=== PATIENT | male | born 1945 | race Caucasian/White ===

== ENCOUNTER 2018-10-26 23:38 | Inpatient (IN) | payer MEDICARE, OTHER ==
[2018-10-27 00:16] LABS: #Eosinphils 0.2 thou/uL (0.0-0.7); #Monocytes 0.6 thou/uL (0.11-0.59); #Neutrophils 6.3 thou/uL (1.40-6.50); %Basophils 0.2 % (0.0-1.0); %Eosinophils 2.1 % (0.0-10.0); %Lymphocytes 11.8 % (21.0-51.0); %Monocytes 7.2 % (0.0-10.0); %Neutrophils 78.7 % (42.0-75.0); Hemoglobin 11.3 g/dL (14.0-18.0); Mean Corpuscular HGB CONC 31.1 g/dL (32.0-36.0); Mean Corpuscular Hemoglobin 31.8 pg (27.0-31.0); Mean Platelet Volume 6.7 fL (7.4-10.4); Platelet Count 167 thou/uL (130-400); RBC Distribution Width 11.7 % (11.5-14.5); Red Blood Cell (RBC) Count 3.54 mill/uL (4.70-6.10)
[2018-10-27 00:24] LABS: INR-International Normal Ratio 1.2; Prothrombin Time 15.2 SEC (12.0-14.7)
[2018-10-27 00:39] LABS: Anion Gap 19 mmol/L (10-20); BUN (Urea Nitrogen) 62 mg/dL (8.4-25.7); Calc. Creatinine Clearance 0 mL/min (70-130); Calcium 8.3 mg/dL (7.8-10.44); Carbon Dioxide 27 mmol/L (23-31); Chloride 93 mmol/L (98-107); Estimated GFR-MDRD 8; Glucose 83 mg/dL (83-110); Potassium 5.3 mmol/L (3.5-5.1); Sodium 134 mmol/L (136-145)
[2018-10-27 00:40] LABS: ALT (SGPT) 8 U/L (8-55); AST (SGOT) 14 U/L (5-34); Alkaline Phosphatase 91 U/L (40-150); Bilirubin, Total 0.7 mg/dL (0.2-1.2); Globulin 3.1 g/dL (2.4-3.5); Protein, Total 7.1 g/dL (5.8-8.1)
[2018-10-27] MEDS ORDERED: Magnesium 2 GM/50 ML BAG (IN WATER) ONE (00:47)
[2018-10-27 01:04] LABS: Bilirubin Small (Negative); Blood, Urine Moderate (Negative); Clarity CLOUDY (Clear); Glucose, Urine (Dipstick) Negative (Negative); Leukocyte Small (Negative); Nitrite Negative (Negative); Protein, Urine (Dipstick) 30 mg/dL (Neg-Trace); Specific Gravity, Urine 1.021 (1.002-1.036); Urobilinogen 0.2 mg/dL (0.2-1.0)
[2018-10-27 01:05] LABS: Bacteria/HPF None Seen HPF (None Seen); Squamous Epithelial 0-3 HPF (0-3)
[2018-10-27 01:06] LABS: Pathc Cast-AUWi Flag 5.71 (0-2.49)
[2018-10-27 01:15] LABS: Other Casts/LPF 0-3 COARSE GRAN LPF (0-3 Hyaline); Renal Epithelial None Seen HPF (0-3); Transitional Epithelial NONE SEEN HPF (0-3)
[2018-10-27] MEDS ORDERED: methylPREDNISolone Sod Succ 40 MG VIAL ONE (01:19)
--- NOTE | 2018-10-27 02:00 | PDOC.FPRHP ---
- History of Present Illness Chief Complaint: AMS History of Present Illness: 73 yo M with PMH BPH, COPD presents as transfer from [place] for altered mental status. History obtained from . She reports 3 day history of increasing confusion, not feeling well, decreased urine output. Patient made no urine today. Had temperature max of 99 degrees 3 days ago. No increased cough, sputum production or difficulty breathing. He did not complain of any pain. says breathing is at baseline. Decreased PO intake x3 days, had to feed him as patient wouldn't raise arms to feed/drink himself. Last week patient could ambulate around the house, work on a car in the garage. Has HH and PT services through [facility]. November 2017 had event of acute renal failure 2/2 BPH that resolved with no residual renal damage per .Hospitalized at [facility]. Urologist: [facility]on [facility] at [facility] PCP: Malik ED Course: 2 g mag, duoneb, levaquin, 80 solumedrol, 1L NS - Allergies/Adverse Reactions Allergies Allergy/AdvReac Type Severity Reaction Status Date / Time No Known Drug Allergies Allergy Verified 10/27/18 06:45 - Home Medications Medication Instructions Recorded Confirmed Type ALPRAZolam 2 mg PO BID PRN 10/27/18 10/27/18 History Albuterol Sulfate [Ventolin Hfa] 2 puff PO Q4H 10/27/18 10/27/18 History Arformoterol [Brovana] 15 mcg NEB BID 10/27/18 10/27/18 History Aspirin [Ecotrin] 81 mg PO DAILY 10/27/18 10/27/18 History Azithromycin 250 mg PO 10/27/18 History Budesonide 0.5 mg NEB BID 10/27/18 10/27/18 History Fluticasone Propionate [Flonase 50 mcg NASAL DAILY 10/27/18 10/27/18 History Nasal [place]] Furosemide 40 mg PO DAILY 10/27/18 10/27/18 History HYDROcodone Bit/APAP 10/325 [[place] 1 tab PO Q6H PRN 10/27/18 10/27/18 History 10/325] Lisinopril 2.5 mg PO DAILY 10/27/18 10/27/18 History Morphine Sulfate [Morphine Sulfate 30 mg PO Q12H 10/27/18 10/27/18 History ER] Omeprazole 20 mg PO DAILY 10/27/18 10/27/18 History Sertraline HCl 50 mg PO DAILY 10/27/18 10/27/18 History Tamsulosin HCl [Flomax] 0.4 mg PO DAILY 10/27/18 10/27/18 History - History PMHx: HLD, HTN, COPD, BPH, hx of PE 2012 after knee surgery PSHx: R knee surgery, AAA repair FHx: CAD, COPD Social: Prior swetha. Current smoker, 1/2 PPD for >60 yrs. No alcohol or drug use. - Review of Systems ROS unobtainable: due to mental status Musculoskeletal: denies: pain - Vital signs BP: 129/69 HR: 79 RR: 16 Tmax: 97.7 Pox: 95% on 2L Wt: 109 kg - Physical Exam Constitutional: other (lethargic, follows commands, responds to some questions, garbled speech) HEENT: normocephalic and atraumatic, grossly normal hearing, other (mucus membranes dry) Neck: supple Heart: RRR, normal S1/S2 (auscultation limited by breath sounds), pulses present , no edema Lungs: other (significant diffuse wheezing, prolonged expiratory phase) Abdomen: bowel sounds present (tight abdomen, does not appear to be painful to palpation, hernia reducible) Musculoskeletal: normal structure, normal tone Neurological: no focal deficit Skin: other (cap refill >2 seconds) FMR H&P: Results - Labs Result Diagrams: 10/27/18 00:10 10/27/18 06:14 Lab results: WBC 8.0 thou/uL (4.8-10.8) 10/27/18 00:10 Hgb 11.3 g/dL (14.0-18.0) L 10/27/18 00:10 Hct 36.2 % (42.0-52.0) L 10/27/18 00:10 MCV 102.0 fL (78.0-98.0) H 10/27/18 00:10 Plt Count 167 thou/uL (130-400) 10/27/18 00:10 Neutrophils % 78.7 % (42.0-75.0) H 10/27/18 00:10 Sodium 134 mmol/L (136-145) L 10/27/18 00:09 Potassium 5.3 mmol/L (3.5-5.1) H 10/27/18 00:09 Chloride 93 mmol/L (98-107) L 10/27/18 00:09 Carbon Dioxide 27 mmol/L (23-31) 10/27/18 00:09 BUN 62 mg/dL (8.4-25.7) H 10/27/18 00:09 Creatinine 7.03 mg/dL (0.7-1.3) H 10/27/18 00:09 Glucose 83 mg/dL (83-110) 10/27/18 00:09 Lactic Acid 0.7 mmol/L (0.5-2.2) 10/27/18 00:23 Calcium 8.3 mg/dL (7.8-10.44) 10/27/18 00:09 Total Bilirubin 0.7 mg/dL (0.2-1.2) 10/27/18 00:09 AST 14 U/L (5-34) 10/27/18 00:09 ALT 8 U/L (8-55) 10/27/18 00:09 Alkaline Phosphatase 91 U/L (40-150) 10/27/18 00:09 Serum Total Protein 7.1 g/dL (5.8-8.1) 10/27/18 00:09 Albumin 4.0 g/dL (3.4-4.8) 04 00:09 Urine Ketones Trace mg/dL (Negative) H 10/27/18 00:38 Urine Blood Moderate (Negative) H 10/27/18 00:38 Urine Nitrite Negative (Negative) 10/27/18 00:38 Ur Leukocyte Esterase Small (Negative) H 10/27/18 00:38 Urine RBC 11-20 HPF (0-3) H 10/27/18 00:38 Urine WBC 11-20 HPF (0-3) H 10/27/18 00:38 Ur Squamous Epith Cells 0-3 HPF (0-3) 10/27/18 00:38 Urine Bacteria None Seen HPF (None Seen) 10/27/18 00:38 FMR H&P: A/P - Problem List (1) Acute metabolic encephalopathy Current Visit: Yes Status: Acute Code(s): G93.41 - METABOLIC ENCEPHALOPATHY (2) Acute renal failure Current Visit: Yes Status: Acute (3) Hypotension Current Visit: Yes Status: Acute (4) COPD (chronic obstructive pulmonary disease) Current Visit: Yes Status: Chronic (5) Macrocytic anemia Current Visit: Yes Status: Acute Code(s): D53.9 - NUTRITIONAL ANEMIA, UNSPECIFIED (6) Hyperkalemia Current Visit: Yes Status: Acute Code(s): E87.5 - HYPERKALEMIA (7) HTN (hypertension) Current Visit: Yes Status: Chronic Code(s): I10 - ESSENTIAL (PRIMARY) HYPERTENSION (8) BPH (benign prostatic hyperplasia) Current Visit: Yes Status: Acute Code(s): N40.0 - BENIGN PROSTATIC HYPERPLASIA WITHOUT LOWER URINRY TRACT SYMP (9) Chronic back pain Current Visit: Yes Status: Chronic Code(s): M54.9 - DORSALGIA, UNSPECIFIED; G89.29 - OTHER CHRONIC PAIN (10) GERD (gastroesophageal reflux disease) Current Visit: Yes Status: Chronic Code(s): K21.9 - GASTRO-ESOPHAGEAL REFLUX DISEASE WITHOUT ESOPHAGITIS (11) HLD (hyperlipidemia) Current Visit: Yes Status: Chronic Code(s): E78.5 - HYPERLIPIDEMIA, UNSPECIFIED (12) Mood disorder Current Visit: Yes Status: Chronic Code(s): F39 - UNSPECIFIED MOOD [ AFFECTIVE] DISORDER - Plan Metabolic encephalopathy 2/2 acute renal failure - VSS apart from hypotension. Normal WBC and lactic. Uremia likely contributing - considering h/o BPH could be post renal obstruction though would have expected more urine output with aguiar insertion. CT ab/pelvis ordered in ED pending. Will order urine studies though these will be after receiving 1.5 L IVF at outside ED. - pending Ucx, Bcx - UA with small leuk esterase, negative nitrite, hyaline casts - s/p 750 levaquin 4/25 in ED - trop neg x1, will not continue to trend - pending swallow evaluation Hypotension, improving - 90/40s in ED and was admitted to ICU with consideration of need for pressors/ central line. However BP now normalized with adequate fluid resuscitation - received 3.5L and now continue on LR @ 140 Acute renal failure - prior hx of this 1 year ago d/t BPH which completely resolved per - pending urine studies - K+ 5.3, Cr 7.03, repeat BMP this am - aguiar in place with 75mL output - strict I&Os, will continue to monitor - Nephrology consult placed by ED COPD - no increased O2 requirement, uses 2.5-3L @ home - s/p mag, solumedrol, levaquin, duoneb in ED - does not appear to be in exacerbation at this time, will continue home medications and continue to monitor respiratory status Macrocytic anemia - Hgb 11.3, ordered B12 and folate Hyperkalemia - 5.3, trend on repeat labs HTN - hold home meds for now considering hypotension BPH - continue home tamsulosin when not NPO Chronic back pain - on hydrocodone and morphine at home GERD - continue home PPI when not NPO HLD - home pravastatin, asa Mood disorder - takes quetiapine, sertraline, alprazolam at home Diet: NPO, pending swallow eval Ppx: heparin Code: DNR Dispo: admit to ICU, if BP stable and patient continues to improve today, could consider deescalating level of care PCP: Malik in [place] Case discussed with Dr. Sutton. FMR H&P: Upper Level - Pertinent history 73 yo M with PMHx HTN, BPH and COPD presents as EUGENIA from [place] for altered mental status, hypotension and anuria/acute renal failure. His reports that he has been feeling poorly over the last 3 days with decreased energy and urine output. However, prior to admission had not urinated at all that day. She also reports no BM in 4 days which is abnormal for him. He has not complained of any pain but did endorse urge to void but unable to. She urged him to go to ED when he was lethargic to point he wouldn't eat or drink at which point he agreed. - Pertinent findings VS reviewed, initially hypotensive which has resolved with fluids O2 94% on 2L which is baseline EKG and imaging reviewed Labs reviewed Gen: arouseable, intermittently responds to questions, oriented x3 HEENT: NCAT, dry MM, trachea midline, no JVD CV: RRR, difficult to auscultate over very coarse breath sounds RESP: coarse breath sounds with insp/exp wheezing BL ABD: firm, nontender, nondistended, reducible umbilcal hernia EXT: no edema, thickened toenails, pulses 1+ throughout SKIN: dry with multiple tattoos - Plan Date/Time: 10/27/18 0159 73 yo M with AMS likely 2/2 uremic encephalopathy 1. Metabolic encephalopathy - Resolving - Suspect 2/2 acute renal failure - Unknown baseline - Will continue fluid resuscitation and monitor strict I/Os - Repeat BMP in 6 hours 2. Hypotension - Responsive to fluids - Admitted to ICU for concern of need for pressors, will hold off at this time 3. Acute renal failure - DDX includes post-obstructive from BPH vs. intrinsic cause - Will order urine studies - Hx of acute renal failure 1 year ago, request records from [facility] - Likely renal consult in a.m. or sooner if concern for need for emergent dialysis arises 4. HTN - Stable, holding home meds with initial hypotensive presentation 5. COPD - At baseline 6. BPH - Continue flomax - Aguiar in place 7. Hyperkalemia - Trend, Kayelexlate if persistent or rising - No EKG changes 8. Acute cystitis - s/p Levaquin in ED - Renal dosing - if persistent next dose in [address] Graham's note for remainder of A/P I, Carola Manjarrez MD, PGY-3, have evaluated this patient and agree with findings/ plan as outlined by winter intern resident. Pertinent changes/additions are listed here. Addendum - Attending - Attending Attestation Date/Time: 10/27/18 2237 I personally evaluated the patient and discussed the management with Dr. Graham. I agree with the History, Examination, Assessment and Plan documented above with any addition or exceptions noted below- 73 yo M with PMH BPH, COPD, HTN presents as transfer from [place] for altered mental status and decreased urine output. History obtained from . She reports 3 day history of increasing confusion, not feeling well, decreased urine output. Has made no urine today. Had temperature max of 99 degrees 3 days ago. No increased cough, sputum production or difficulty breathing. He did not complain of any chills, N/ V. abdominal pain, dysuria. says breathing is at baseline. Decreased PO intake x3 days, had to feed him as patient wouldn't raise arms to feed/ drink himself. PMH/PSH/Meds/SH reviewed and agree with resident's documentation. Afebrile VSS Exam repeated by me and agree with resident's findings. Labs: WBC=8.0, H/H=11.3/36.2, Sxo=385, Rl=780, K=5.3, Cl=93 CO2=27, BUN/Cr=62/7.03, Gluc=83, PT/INR=15.2/1.2, U/A- tr ket, mod blood, sm LE, 11-20 RBC, 11-[address] abd- no evidence of kidney stones. No evidence of obstructive nephropathy or uropathy, moderate diverticulosis. A/P: 1) Acute on chronic renal failure - Admit to hospital. Continue IVF. Monitor I/Os. Aguiar placed. Plan to consult nephrology in AM. 2) Hypotension- resolved with fluid resuscitation. Continue to monitor. 3) COPD - continue home meds.
[2018-10-27] MEDS ORDERED: Senokot S 8.6-50 MG TAB PO PRN (02:25)
[2018-10-27] MEDS ORDERED: Lactated Ringer's 1,000 ML IV SCH (03:30)
[2018-10-27] MEDS ORDERED: PROVENTIL INHALER 6.7 G (200 INHALATIONS) INH SCH (06:15)
[2018-10-27 06:55] LABS: Anion Gap 19 mmol/L (10-20); BUN (Urea Nitrogen) 64 mg/dL (8.4-25.7); Calc. Creatinine Clearance 15 mL/min (70-130); Calcium 8.4 mg/dL (7.8-10.44); Carbon Dioxide 25 mmol/L (23-31); Chloride 96 mmol/L (98-107); Estimated GFR-MDRD 8; Glucose 98 mg/dL (83-110); Potassium 5.8 mmol/L (3.5-5.1); Sodium 134 mmol/L (136-145)
[2018-10-27 07:27] LABS: Folate (Folic Acid) 5.7 ng/mL (7.0-31.4)
[2018-10-27] MEDS: Aspirin 81 mg Enteric Coated Tablet PO SCH (07:46)
[2018-10-27] MEDS: Heparin 5,000 UNITS/ML VIAL SC SCH ×3 (07:46→20:32)
[2018-10-27] MEDS: Nicotine 14 MG PATCH TD SCH (07:46)
[2018-10-27] MEDS: Tamsulosin HCl 0.4 MG CAP PO SCH (07:48)
--- NOTE | 2018-10-27 07:53 | RAD ---
EXAM: CHEST ONE VIEW HISTORY: Shortness of breath COMPARISON: 10/05/2016 FINDINGS: Previously seen bibasilar linear and interstitial densities have improved when compared to prior stud y. Findings at the right lung base have resolved with only mild persistent linear densities left lung base which may be related to either residual infiltrate or atelectasis. Lungs are otherwise gera r. Cardiac silhouette and pulmonary vasculature are within normal limits. No other interval change. IMPRESSION: Resolution of interstitial densities left lung base with improvement in interstitial densities at the left lung base which may be related to either improvement in atelectasis or pneumonia. Minimal linear densities do persist at the left lung base probably attributable to atelectasis or residual in filtrate.
--- NOTE | 2018-10-27 07:58 | CT ---
FINAL REPORT CT ABDOMEN AND PELVIS NONCONTRAST: DATE: 10/27/2018. TIME: Performed on an emergency basis at 0155 hours. HISTORY: Acute onset renal failure. FINDINGS: Agree with the preliminary report by Dr. Pool from [facility]. No CT evidence of urinary t ract obstruction or calcification. Lack of contrast limits evaluation for other abnormalities. Gallbladder is distended with very small amount of hyperdense debris, possibly small gallstones. Diverticulosis without evidence of divertic ulitis. POS: CHRIS
[2018-10-27] MEDS ORDERED: Non-Formulary Item 1 EACH (Sertraline Hcl [Sertraline Hcl] 50 MG) PO SCH (09:00)
[2018-10-27] MEDS ORDERED: Non-Formulary Item 1 EACH (Omeprazole [Omeprazole] 20 MG) PO SCH (09:00)
[2018-10-27] MEDS ORDERED: Fluticasone Propionate Nasal Spray 16 gm Bottle NASAL SCH (09:00)
[2018-10-27 10:10] LABS: Actual Bicarbonate (HCO3a) 24.1 mEq/L (22-28); Base Excess (BEa) -3.1 mEq/L (-2.0 to +3.0); CO2 Tension 52.6 mmHg (35.0-45.0); Calcium, Ionized 1.06 mmol/L (1.12-1.30); Carboxyhemoglobin (COHb) 1.3 gm% (0.0-3.0); Hemoglobin (Hb) 11.4 g/dL (14.0-18.0); O2 Tension (PaO2) 70.7 mmHg (> 70.0); Potassium - ABG Lab 5.65 mmol/L (3.70-5.30); pH, Arterial 7.28 (7.35-7.45)
[2018-10-27] MEDS: Sodium Chloride 0.9% 1,000 ML IV SCH ×3 (10:10→23:18)
[2018-10-27 10:11] LABS: Puncture Site RRA
[2018-10-27] MEDS: Fluticasone Propionate Nasal Spray 16 gm Bottle NASAL SCH (11:29)
[2018-10-27] MEDS: methylPREDNISolone Sod Succ 40 MG VIAL IVP SCH ×3 (11:34→23:15)
[2018-10-27] MEDS ORDERED: methylPREDNISolone Sod Succ 40 MG VIAL IVP SCH (12:00)
--- NOTE | 2018-10-27 12:25 | CON ---
DATE OF CONSULTATION: REASON FOR CONSULTATION: Elevated creatinine and hyperkalemia. HISTORY OF PRESENT ILLNESS: This is a very pleasant 73-year-old gentleman with a history of acute kidney injury in the past and endovascular stent, presented to the hospital for decreasing urine output for the last three days and his brought him to the emergency room. The patient has had BPH and has had renal failure in the past. The patient denies any nausea, vomiting, or chest pain. PAST MEDICAL HISTORY: Hypertension, COPD, BPH, history of pulmonary embolism, history of right knee surgery, AAA repair. FAMILY HISTORY: Negative for ESRD. SOCIAL HISTORY: No alcohol or drug use. ALLERGIES: REVIEWED. REVIEW OF SYSTEMS: A 15-point review of system was performed negative except as noted above. GENERAL: HEAD: NECK: No swelling or lumps. NOSE: No epistaxis or discharge. EYES: No diplopia or pain. RESPIRATORY: CARDIOVASCULAR: GASTROINTESTINAL: /DIRECTOR EXTERNAL COMMUNICATIONS: MUSCULOSKELETAL: No joint pain. NEUROPSYCHIATRIC SYSTEMS: No suicidal ideation. No ideation. SKIN: Denies any rash or ulcer. CONSTITUTIONAL: No fever or chills. MEDICATIONS: Hospital medications list reviewed. Home medication list reviewed. PHYSICAL EXAMINATION: GENERAL: The patient is awake and alert. VITAL SIGN: Afebrile. Pulse 99, breathing 16, blood pressure 130/67. GENERAL APPEARANCE AND MENTAL STATUS: Fair. HEAD/NECK: Normocephalic. Atraumatic. EYES: EOMI. No deformity. EARS: Clear. No ulcers. NOSE: Intact. No lesions. MOUTH: Clear. No discharge. THROAT: Clear. No exudate. LUNGS: Clear. No crackles. CARDIAC: S1, S2. No rub. ABDOMEN: Benign. Bowel sounds positive. GENITALIA/RECTUM: Schultz absent. BACK/EXTREMITIES: Edema 0+. NEUROLOGICAL: Alert and motor intact. SKIN: LYMPHATICS: LABORATORY DATA: Labs show hemoglobin 11.3. Creatinine is 6.6, potassium 5.2. ASSESSMENT AND PLAN: 1. Acute kidney injury with chronic kidney disease, most likely multifactorial. There is no hydronephrosis likely because of ischemic nephropathy. There is no urgent indication for dialysis. Continue hydration. The patient is making urine. 2. Hyperkalemia. We will change the lactated Ringer's to normal saline and recheck potassium at 2:00 p.m. 3. Hypertension, stable. Medication based on GFR appropriate. No urgent indication for dialysis. Renal replacement therapy options were discussed with the patient and his spouse declined those. Job ID: [id number]
--- NOTE | 2018-10-27 13:28 | ULT ---
RENAL ULTRASOUND: COMPARISON: CT abdomen/pelvis 10/27/2018. HISTORY: Size and shape of the kidneys. TECHNIQUE: Multiplanar, randolph scale, and color Doppler images were obtained in a renal ultrasound. FINDINGS: The right kidney could not be visualized. There is limited visualization of the left kidney which me asures 10.8 cm in length. The Schultz catheter decompresses the urinary bladder. IMPRESSION: Extremely limited renal ultrasound secondary to bowel gas. POS: TPC
[2018-10-27 15:10] LABS: Anion Gap 21 mmol/L (10-20); BUN (Urea Nitrogen) 70 mg/dL (8.4-25.7); Calc. Creatinine Clearance 15 mL/min (70-130); Calcium 8.5 mg/dL (7.8-10.44); Carbon Dioxide 24 mmol/L (23-31); Chloride 96 mmol/L (98-107); Estimated GFR-MDRD 8; Glucose 164 mg/dL (83-110); Potassium 5.4 mmol/L (3.5-5.1); Sodium 136 mmol/L (136-145)
--- NOTE | 2018-10-27 17:37 | CON ---
DATE OF CONSULTATION: 10/27/2018 This is 75 minutes time, of that time, greater than 50% was spent with the patient and/or the patient's unit in the hospital. HISTORY OF PRESENT ILLNESS: The patient is a 73-year-old male, whose called 911 yesterday because he had not produced urine in 3 days. He has received most of his care at [facility] in the past. He is an active patient of Dr. Mcintosh, who is now a vigoureux printer at [facility]. The patient has a history of severe COPD and requires oxygen at home for treatment of chronic hypoxemic respiratory issues. He has had a history of postobstructive uropathy in the past. He has apparently had decreased oral intake over the last 3 days. He really cannot give me much in the way of history and seems somewhat altered. PAST MEDICAL HISTORY: 1. Very severe COPD. 2. Complex SUSAN, requiring auto SV in the past, but the patient is now noncompliant with that. 3. Anxiety. 4. Peripheral vascular disease. 5. Obstructive uropathy from prostate issues. PAST SURGICAL HISTORY: 1. Endovascular repair of AAA. 2. Right knee surgery x2. 3. Carpal tunnel release. SOCIAL HISTORY: Smokes about 8 cigarettes a day. Smoked more heavily in the past. Lives near [place]. Receives most of his medical care over in [place]. Does not consume alcohol. He is a retired dixon. FAMILY MEDICAL HISTORY: Remarkable for dementia, heart disease, and COPD. MEDICATIONS: Prior to admission: 1. Alprazolam 2 mg b.i.d. 2. Albuterol HFA metered-dose inhaler as needed. 3. Brovana twice daily. 4. Ecotrin 81 mg daily. 5. Budesonide nebulization solution 0.5 mg twice daily. 6. Azithromycin 250 mg a day. 7. Furosemide 40 mg daily. 8. Hydrocodone 10/325 one tab every 6 hours as needed. 9. Lisinopril 2.5 mg daily. 10. Morphine 30 mg every 12 hours extended release. 11. Omeprazole 20 mg daily. 12. Sertraline 50 mg daily. 13. Flomax 0.4 mg daily. REVIEW OF SYSTEMS: Not obtainable secondary to the patient's altered mental status. PHYSICAL EXAMINATION: VITAL SIGNS: Temperature 98.9, pulse 71, blood pressure 140/60, O2 saturation 92% on nasal cannula. The patient is 5 feet 11 inches, weighs 248 pounds. GENERAL: He appears in almost continuous respiratory discomfort. His exhalation time when he breaths is about 15 seconds per breath. HEENT: Pupils; right measures 5, left measures 3, both reactive. Sclerae anicteric. Oropharynx, enlarged tongue. Class 4 Mallampati airway. He has a white exudate on his tongue. NECK: No adenopathy, JVD, or bruits. LUNGS: Diffuse in expiratory wheezing with prolonged expiratory phase. CARDIAC: S1 and S2 regular without audible murmur. ABDOMEN: Obese, soft, nontender, and nondistended. EXTREMITIES: Brawny edema throughout. LABORATORY DATA: His labs show sodium 134, potassium 5.8, chloride 96, CO2 of 25, BUN of 64, creatinine 6.6, and glucose 98. INR is 1.2. Urinalysis showed 11 to 12 red blood cells, 11 to 12 white blood cells, moderate amount of blood, protein present, glucose present. White blood cell count 8.0, hematocrit 36.2, and platelet count 167. IMAGING STUDIES: Abdominal CT did not show evidence of bladder distention. Chest x-ray demonstrates elevated hemidiaphragms, prominent pulmonary arteries. No mass, effusion, or infiltrate otherwise. ASSESSMENT: 1. Acute renal failure, probably prerenal in nature. 2. Chronic obstructive pulmonary disease, likely with exacerbation. 3. Suspected hypercapnic and hypoxic acute on chronic respiratory failure. 4. Tobacco abuse. PLAN: 1. I think his main issue is probably COPD. I think he is having an exacerbation of symptoms and that has led to his decreased oral intake. 2. I would go ahead and place this patient on IV steroids and be more aggressive with his nebulization treatments. I will have an ABG checked. We can consider noninvasive ventilation if needed. 3. I agree with Schultz catheter fluid trial and Nephrology consultation will follow. Job ID: [id number]
[2018-10-27] MEDS: Budesonide 0.5 MG/2 ML NEB NEB SCH (18:11)
[2018-10-27] MEDS: Arformoterol 15 MCG/2 ML NEB NEB SCH (18:11)
[2018-10-27] MEDS ORDERED: ALPRAZolam 1 MG TAB PO SCH (22:15)
[2018-10-28 05:35] LABS: #Lymphocytes 0.3 thou/uL (1.20-3.40); #Monocytes 0.1 thou/uL (0.11-0.59); %Basophils 0.4 % (0.0-1.0); %Eosinophils 0.3 % (0.0-10.0); %Lymphocytes 4.8 % (21.0-51.0); %Monocytes 1.5 % (0.0-10.0); %Neutrophils 92.9 % (42.0-75.0); Hemoglobin 9.7 g/dL (14.0-18.0); Mean Corpuscular HGB CONC 32.4 g/dL (32.0-36.0); Mean Corpuscular Hemoglobin 32.4 pg (27.0-31.0); Mean Platelet Volume 7.4 fL (7.4-10.4); Platelet Count 187 thou/uL (130-400); RBC Distribution Width 11.9 % (11.5-14.5); Red Blood Cell (RBC) Count 2.98 mill/uL (4.70-6.10); White Blood Cell (WBC) Count 6.5 thou/uL (4.8-10.8)
[2018-10-28 06:00] LABS: ALT (SGPT) 10 U/L (8-55); AST (SGOT) 15 U/L (5-34); Albumin 3.6 g/dL (3.4-4.8); Alkaline Phosphatase 72 U/L (40-150); Anion Gap 17 mmol/L (10-20); BUN (Urea Nitrogen) 78 mg/dL (8.4-25.7); Bilirubin, Total 0.5 mg/dL (0.2-1.2); Calc. Creatinine Clearance 18 mL/min (70-130); Calcium 8.5 mg/dL (7.8-10.44); Carbon Dioxide 24 mmol/L (23-31); Chloride 100 mmol/L (98-107); Estimated GFR-MDRD 10; Globulin 2.8 g/dL (2.4-3.5); Glucose 132 mg/dL (83-110); Potassium 4.9 mmol/L (3.5-5.1); Protein, Total 6.4 g/dL (5.8-8.1); Sodium 136 mmol/L (136-145)
[2018-10-28] MEDS: methylPREDNISolone Sod Succ 40 MG VIAL IVP SCH ×4 (06:42→23:34)
[2018-10-28] MEDS: Bacteriostatic Water 30 ML VIAL FS PRN (06:42)
--- NOTE | 2018-10-28 07:22 | PDOC.FM ---
- Subjective Subjective: Patient seen at bedside this morning in no acute distress. He denies any complaints this morning. No acute events over night. - Objective MAR Reviewed: Yes Vital Signs & Weight: Vital Signs (12 hours) Temp Pulse Resp Pulse Ox 10/28/18 02:09 90 14 98 10/28/18 00:00 98.6 F 10/27/18 22:35 86 18 98 10/27/18 20:00 96 Weight Weight 112.7 kg Most Recent Monitor Data Heart Rate from ECG 93 NIBP 123/61 NIBP BP-Mean 75 Respiration from ECG 24 SpO2 97 I&O: 10/27/18 10/28/18 10/29/18 06:59 06:59 06:59 Intake Total 337 3756 Output Total 141 1715 Balance 196 1 Result Diagrams: 10/28/18 04:42 10/28/18 04:42 Phys Exam - Physical Examination Constitutional: NAD HEENT: moist MMs Neck: no JVD Wheezing and decreased air movement throughout. Tachycardic, no murmur noted. Muffled heart sounds Gastrointestinal: soft, non-tender, no distention Musculoskeletal: no edema, pulses present Neurological: non-focal, normal sensation, moves all 4 limbs Deviation from normal: A&O x1, patient appears confused when asked specific questions Skin: no rash Dx/Plan (1) Acute metabolic encephalopathy Code(s): G93.41 - METABOLIC ENCEPHALOPATHY Status: Acute (2) Acute renal failure Status: Acute (3) BPH (benign prostatic hyperplasia) Code(s): N40.0 - BENIGN PROSTATIC HYPERPLASIA WITHOUT LOWER URINRY TRACT SYMP Status: Chronic (4) Hyperkalemia Code(s): E87.5 - HYPERKALEMIA Status: Resolved (5) Hypotension Status: Resolved (6) Macrocytic anemia Code(s): D53.9 - NUTRITIONAL ANEMIA, UNSPECIFIED Status: Chronic (7) COPD (chronic obstructive pulmonary disease) Status: Chronic (8) Chronic back pain Code(s): M54.9 - DORSALGIA, UNSPECIFIED; G89.29 - OTHER CHRONIC PAIN Status: Chronic (9) GERD (gastroesophageal reflux disease) Code(s): K21.9 - GASTRO-ESOPHAGEAL REFLUX DISEASE WITHOUT ESOPHAGITIS Status: Chronic (10) HLD (hyperlipidemia) Code(s): E78.5 - HYPERLIPIDEMIA, UNSPECIFIED Status: Chronic (11) HTN (hypertension) Code(s): I10 - ESSENTIAL (PRIMARY) HYPERTENSION Status: Chronic - Plan Plan: 1. Metabolic encephalopathy - appears to be resolving, unclear baseline though he is much more aware today as compared to yesterday 2. Acute renal failure - improving renal function today, this was likely all pre renal related to poor po intake - continue IVF and monitoring urine output. 3. Hyperkalemia, resolved 4. Macrocytic anemia - Hb lower today, likely dilutional. Will need to replace folate in outpatient setting 5. COPD exacerbation - normal O2 sat, improved breath sounds though still poor air movement - continue duoneb and steroids 6. Hypotension, resolved 7. BPH - likely contributing to LENNOX - continue flomax - follow up with urology outpatient Dispo: patient is improving and stable, likely ready to move to medical floor today. Length of stay >48 hours. Addendum - Attending - Attending Attestation Date/Time: 10/28/18 1008 I personally evaluated the patient and discussed the management with Dr. Vieyra I agree with the History, Examination, Assessment and Plan documented above with any addition or exceptions noted below.Patient improved relates nearing his Mental status baseline. RFTs improving Lungs still with marked prolonged expiratory wheezing albeit improved.Appreciate specialty consultants recommendations.
[2018-10-28] MEDS: Budesonide 0.5 MG/2 ML NEB NEB SCH ×2 (08:51→18:48)
[2018-10-28] MEDS: Arformoterol 15 MCG/2 ML NEB NEB SCH ×2 (09:03→18:48)
[2018-10-28] MEDS: Sodium Chloride 0.9% 1,000 ML IV SCH ×3 (09:21→23:37)
[2018-10-28] MEDS: Nicotine 14 MG PATCH TD SCH (09:21)
[2018-10-28] MEDS: Heparin 5,000 UNITS/ML VIAL SC SCH ×3 (09:22→20:55)
[2018-10-28] MEDS: Fluticasone Propionate Nasal Spray 16 gm Bottle NASAL SCH (09:22)
[2018-10-28] MEDS: Azithromycin 250 MG TAB PO SCH (09:22)
[2018-10-28] MEDS: Aspirin 81 mg Enteric Coated Tablet PO SCH (09:22)
[2018-10-28] MEDS: Tamsulosin HCl 0.4 MG CAP PO SCH (09:23)
--- NOTE | 2018-10-28 09:36 | PRG ---
DATE OF SERVICE: 10/28/2018 SUBJECTIVE: He is up in a chair. He looks better and appears to feel better. He is shaking profusely, however. OBJECTIVE: VITAL SIGNS: His temperature is 98.6, pulse 93, blood pressure 123/61. Intake 3756, output 1715. HEENT: Unremarkable. NECK: No JVD. LUNGS: Diminished breath sounds throughout, but not as much wheezing yesterday. CARDIAC: S1 and S2, regular. ABDOMEN: Soft, obese, and nontender. EXTREMITIES: No edema. LABORATORY DATA: White blood cell count 6.5, hematocrit 29.8, and platelet count is 187. Sodium 136, potassium 4.9, chloride 100, CO2 of 24, BUN 78, creatinine 5.8, and glucose 132. ASSESSMENT: 1. Chronic obstructive pulmonary disease with exacerbation. 2. Acute kidney injury with improvement in renal function after hydration. 3. Tobacco abuse. PLAN: 1. He can be transferred out to the [facility]. Continue fluid management. 2. I will back off on his nebulization treatments since he is shaking profusely. We can also decrease his steroid dose. Job ID: [id number]
[2018-10-28] MEDS ORDERED: Lorazepam 2 MG/ML VIAL SLOW IVP SCH (10:00)
--- NOTE | 2018-10-28 12:23 | PRG ---
DATE OF SERVICE: 10/28/2018 SUBJECTIVE: A 73-year-old gentleman being seen for acute kidney injury. The patient denied any nausea, vomiting, or chest pain. OBJECTIVE: CONSTITUTIONAL: On exam, the patient is awake and alert. VITAL SIGNS: Afebrile. Pulse 104, breathing 16, blood pressure 130/60. GENERAL APPEARANCE AND MENTAL STATUS: Fair. HEAD/NECK: Normocephalic. Atraumatic. EYES: EOMI. No deformity. EARS: Clear. No ulcers. NOSE: Intact. No lesions. MOUTH: Clear. No discharge. THROAT: Clear. No exudate. LUNGS: Clear. No crackles. CARDIAC: S1, S2. No rub. ABDOMEN: Benign. Bowel sounds positive. GENITALIA/RECTUM: Schultz absent. BACK/EXTREMITIES: Edema 0+. NEUROLOGICAL: Alert and motor intact. LABORATORY DATA: Reviewed. ASSESSMENT AND PLAN: 1. Stage 5 chronic kidney disease, stable due to acute tubular necrosis. 2. Hypertension, stable. 3. Anemia, stable. 4. Hyperkalemia, stable. No indication for dialysis. Job ID: [id number]
[2018-10-29 06:04] LABS: ALT (SGPT) 9 U/L (8-55); AST (SGOT) 13 U/L (5-34); Albumin 3.3 g/dL (3.4-4.8); Alkaline Phosphatase 63 U/L (40-150); Anion Gap 14 mmol/L (10-20); BUN (Urea Nitrogen) 79 mg/dL (8.4-25.7); Bilirubin, Total 0.4 mg/dL (0.2-1.2); Calc. Creatinine Clearance 22 mL/min (70-130); Calcium 8.3 mg/dL (7.8-10.44); Carbon Dioxide 24 mmol/L (23-31); Chloride 108 mmol/L (98-107); Estimated GFR-MDRD 13; Globulin 2.4 g/dL (2.4-3.5); Glucose 140 mg/dL (83-110); Potassium 4.7 mmol/L (3.5-5.1); Protein, Total 5.7 g/dL (5.8-8.1); Sodium 141 mmol/L (136-145)
[2018-10-29] MEDS: methylPREDNISolone Sod Succ 40 MG VIAL IVP SCH ×4 (06:18→23:25)
[2018-10-29] MEDS ORDERED: Lorazepam 1 MG TAB PO PRN (06:24)
--- NOTE | 2018-10-29 06:32 | PDOC.FM ---
- Subjective Subjective: Patient seen at bedside this morning resting comfortably. He was moved to [facility] yesterday and is doing well. He has no complaints this morning other than weakness with ambulation. No acute events overnight. - Objective MAR Reviewed: Yes Vital Signs & Weight: Vital Signs (12 hours) Temp Pulse Resp Pulse Ox 10/29/18 03:41 98.8 F 10/28/18 23:40 98.8 F 10/28/18 23:37 64 18 98 10/28/18 19:32 98.2 F 10/28/18 18:48 87 20 99 10/28/18 18:47 87 20 99 Weight Weight 112.7 kg Most Recent Monitor Data Heart Rate from ECG 65 NIBP 125/52 NIBP BP-Mean 76 Respiration from ECG 18 SpO2 96 I&O: 10/27/18 10/28/18 10/29/18 06:59 06:59 06:59 Intake Total 337 3756 1721 Output Total 141 1715 660 Balance 196 2041 1061 Result Diagrams: 10/29/18 07:02 10/29/18 05:08 Phys Exam - Physical Examination Constitutional: NAD HEENT: moist MMs Neck: no JVD Wheezing throughout, no rales Muffled heart sounds, difficult to auscultate over wheezing Gastrointestinal: soft, non-tender, no distention Musculoskeletal: no edema Neurological: non-focal, moves all 4 limbs Psychiatric: A&O x 3 Deviation from normal: appears anxious Skin: no rash, normal turgor Dx/Plan (1) Acute metabolic encephalopathy Code(s): G93.41 - METABOLIC ENCEPHALOPATHY Status: Acute (2) Acute renal failure Status: Acute (3) BPH (benign prostatic hyperplasia) Code(s): N40.0 - BENIGN PROSTATIC HYPERPLASIA WITHOUT LOWER URINRY TRACT SYMP Status: Chronic (4) Hyperkalemia Code(s): E87.5 - HYPERKALEMIA Status: Resolved (5) Hypotension Status: Resolved (6) Macrocytic anemia Code(s): D53.9 - NUTRITIONAL ANEMIA, UNSPECIFIED Status: Chronic (7) COPD (chronic obstructive pulmonary disease) Status: Chronic (8) Chronic back pain Code(s): M54.9 - DORSALGIA, UNSPECIFIED; G89.29 - OTHER CHRONIC PAIN Status: Chronic (9) GERD (gastroesophageal reflux disease) Code(s): K21.9 - GASTRO-ESOPHAGEAL REFLUX DISEASE WITHOUT ESOPHAGITIS Status: Chronic (10) HLD (hyperlipidemia) Code(s): E78.5 - HYPERLIPIDEMIA, UNSPECIFIED Status: Chronic (11) HTN (hypertension) Code(s): I10 - ESSENTIAL (PRIMARY) HYPERTENSION Status: Chronic (12) UTI (urinary tract infection) Status: Acute (13) Physical deconditioning Code(s): R53.81 - OTHER MALAISE Status: Acute - Plan Plan: 1. Metabolic encephalopathy, resolved 2. Acute renal failure related to ATN - Renal function improving, however still significantly reduced GFR. - continue IVF and monitoring urine output. No current signs of volume overload 3. Hyperkalemia, resolved 4. Macrocytic anemia - Continue to monitor 5. COPD exacerbation - O2 demand at baseline - continue duoneb and steroids 6. Hypotension, resolved 7. BPH - continue flomax - follow up with urology outpatient for further management 8. UTI - Initial cx was read as non hemolytic strep, now shows as enterococcus. Will treat with amoxil as both would be sensitive. Cipro may an option as it is possible that there is prostate evolvement, however given that he is on steroids and over 68, will avoid quinolones 9. Deconditioning - consult rehab Dispo: patient is improving and stable, likely ready to move to medical floor today. Length of stay >48 hours. Addendum - Attending - Attending Attestation Date/Time: 10/29/18 1610 I personally evaluated the patient and discussed the management with Dr. Vieyra I agree with the History, Examination, Assessment and Plan documented above with any addition or exceptions noted below. Patient with daily improvement Mental status greatly improved today. Continue to advance urine outpt remains good continue trend RFTS.
[2018-10-29] MEDS: Budesonide 0.5 MG/2 ML NEB NEB SCH ×2 (07:00→18:55)
[2018-10-29] MEDS: Arformoterol 15 MCG/2 ML NEB NEB SCH ×2 (07:18→18:56)
[2018-10-29 07:19] LABS: #Lymphocytes 0.4 thou/uL (1.20-3.40); #Monocytes 0.2 thou/uL (0.11-0.59); #Neutrophils 5.9 thou/uL (1.40-6.50); %Eosinophils 0.3 % (0.0-10.0); %Lymphocytes 6.1 % (21.0-51.0); %Monocytes 2.8 % (0.0-10.0); %Neutrophils 90.8 % (42.0-75.0); Hemoglobin 9.4 g/dL (14.0-18.0); Mean Corpuscular Hemoglobin 32.2 pg (27.0-31.0); Mean Platelet Volume 7.4 fL (7.4-10.4); Platelet Count 190 thou/uL (130-400); Red Blood Cell (RBC) Count 2.93 mill/uL (4.70-6.10); White Blood Cell (WBC) Count 6.5 thou/uL (4.8-10.8)
[2018-10-29] MEDS: Sodium Chloride 0.9% 1,000 ML IV SCH ×2 (07:35→14:47)
[2018-10-29] MEDS ORDERED: AMOXicillin 250 MG CAP PO SCH (09:00)
[2018-10-29] MEDS: Aspirin 81 mg Enteric Coated Tablet PO SCH (10:05)
[2018-10-29] MEDS: Tamsulosin HCl 0.4 MG CAP PO SCH (10:05)
[2018-10-29] MEDS: Heparin 5,000 UNITS/ML VIAL SC SCH ×3 (10:06→20:37)
[2018-10-29] MEDS: Fluticasone Propionate Nasal Spray 16 gm Bottle NASAL SCH (10:06)
[2018-10-29] MEDS: AMOXicillin 250 MG CAP PO SCH ×3 (10:06→20:37)
[2018-10-29] MEDS: Nicotine 14 MG PATCH TD SCH (10:07)
[2018-10-29] MEDS ORDERED: Sodium Chloride 0.45% 1,000 ML IV SCH (13:30)
--- NOTE | 2018-10-29 14:12 | PRG ---
DATE OF SERVICE: 10/29/2018 SERVICE: Pulmonary Medicine. INTERVAL HISTORY: The patient is doing really well from respiratory standpoint. He indicates he is about 50% to 60% back to baseline. That being said, he still has conversational dyspnea, and labored respirations. He denies any current fevers or chills or overnight events. He is coughing, but not bringing up much sputum. PHYSICAL EXAMINATION: VITAL SIGNS: Afebrile with a T-max of 99.2, pulse 86, blood pressure 138/67, respirations 15, saturation 98% on 2 L nasal cannula. GENERAL: The patient is awake and alert, in no apparent distress. LUNGS: Reduced air entry. No prolonged expiratory phase with wheezing and rhonchi present. Rhonchi clear with cough. HEART: Normal rate and regular. ABDOMEN: Soft, nontender, nondistended. Bowel sounds are positive. MUSCULOSKELETAL: No cyanosis or clubbing. There is trace pitting in the bilateral lower extremities. NEUROLOGIC: Grossly nonfocal. LABORATORY DATA: WBC 6.5, hemoglobin 9.4, platelets 190,000. Creatinine 4.59, BUN 79, sodium 141, chloride 108. Urine culture is growing Enterococcus faecalis, which is essentially pansensitive organism. Blood cultures x2 remain unremarkable. ASSESSMENT: 1. Eewnw-ss-woqtbzw hypoxic and hypercapnic respiratory failure. 2. Chronic obstructive pulmonary disease with acute exacerbation. 3. Severe sepsis secondary to complicated urinary tract infection. 4. Acute kidney injury on chronic kidney disease. DISCUSSION AND PLAN: I will turn his IV fluids off. We will put him on just half-normal saline and run him at 40 mL/h over the next 24 hours. His appetite has improved very nicely. He is on appropriate antimicrobial therapy. We will continue steroids and nebulized medications frequently. Pulmonary Critical Care will continue to follow along, but the patient will need to remain in this location for at least another 24 hours. Job ID: [id number]
--- NOTE | 2018-10-29 14:18 | PRG ---
DATE OF SERVICE: 10/29/2018 SUBJECTIVE: This is a 73-year-old gentleman being seen for acute kidney injury. The patient denies any nausea, vomiting, or chest pain. OBJECTIVE: CONSTITUTIONAL: On examination, the patient is awake and alert. VITAL SIGNS: Afebrile, pulse 75, breathing 16, blood pressure was 146/50. GENERAL APPEARANCE AND MENTAL STATUS: Fair. HEAD/NECK: Normocephalic. Atraumatic. EYES: EOMI. No deformity. EARS: Clear. No ulcers. NOSE: Intact. No lesions. MOUTH: Clear. No discharge. THROAT: Clear. No exudate. LUNGS: Clear. No crackles. CARDIAC: S1, S2. No rub. ABDOMEN: Benign. Bowel sounds positive. GENITALIA/RECTUM: Schultz absent. BACK/EXTREMITIES: Edema 0+. NEUROLOGICAL: Alert and motor intact. LABORATORY DATA: Reviewed. ASSESSMENT AND PLAN: 1. Acute kidney injury, improved. 2. Hypertension, stable. 3. Anemia, stable. 4. Medications based on glomerular filtration rate are appropriate. 5. Hyperkalemia is resolved. No indication for dialysis. The patient has chronic kidney disease, stage 4 due to acute tubular necrosis. Job ID: [id number]
[2018-10-29] MEDS: Senokot S 8.6-50 MG TAB PO SCH (20:36)
--- NOTE | 2018-10-30 03:24 | PDOC.EVN ---
Event Note - Event Note Event Note: S: Called to bedside by nursing as pt HR elevated to 140s. Pt reported feeling no increase of SOB but that it "just feels a little different", no chest pain, no palpitations. No other complaints per pt. O: Vitals: HR 143, BP 140s/80s, O2 sat 98% on 2L GEN: no acute distress CARD: tachycardic, irregular PULM: bilateral expiratory wheezing EKG: afib with RVR A/P: Pt in afib with RVR, BPs will tolerate dilt drip -Dilt bolus and subsequent drip to titrate up per nursing -Mg, phos, TSH
[2018-10-30] MEDS: Diltiazem 125 MG in Sodium Chloride 0.9% 100 ML IVPB SCH (03:53)
[2018-10-30 05:20] LABS: Hemoglobin 9.5 g/dL (14.0-18.0)
[2018-10-30] MEDS: methylPREDNISolone Sod Succ 40 MG VIAL IVP SCH ×3 (05:28→17:44)
[2018-10-30 05:50] LABS: Phosphorus 3.6 mg/dL (2.3-4.7)
[2018-10-30 05:51] LABS: Anion Gap 12 mmol/L (10-20); BUN (Urea Nitrogen) 79 mg/dL (8.4-25.7); Calc. Creatinine Clearance 28 mL/min (70-130); Calcium 8.4 mg/dL (7.8-10.44); Carbon Dioxide 24 mmol/L (23-31); Chloride 109 mmol/L (98-107); Estimated GFR-MDRD 17; Glucose 139 mg/dL (83-110); Magnesium 2.1 mg/dL (1.6-2.6); Potassium 4.4 mmol/L (3.5-5.1); Sodium 141 mmol/L (136-145)
[2018-10-30] MEDS: Budesonide 0.5 MG/2 ML NEB NEB SCH ×2 (06:59→18:26)
[2018-10-30] MEDS: Arformoterol 15 MCG/2 ML NEB NEB SCH ×2 (06:59→18:27)
--- NOTE | 2018-10-30 07:53 | PDOC.FM ---
- Subjective Subjective: Seen at bedside this morning, no change from yesterday. Overnight patient was found to be in afib w/rvr and started on dilt drip. - Objective Vital Signs & Weight: Vital Signs (12 hours) Temp Pulse Resp Pulse Ox 10/30/18 07:13 98.4 F 10/30/18 06:59 99 10/30/18 06:57 90 15 99 10/30/18 04:26 98.4 F 10/30/18 00:00 98.0 F 10/29/18 23:33 98 10/29/18 20:00 99 Weight Weight 111.385 kg Most Recent Monitor Data Heart Rate from ECG 102 NIBP 127/84 NIBP BP-Mean 98 Respiration from ECG 16 SpO2 100 I&O: 10/29/18 10/30/18 10/31/18 06:59 06:59 06:59 Intake Total 1721 4091 Output Total 660 2500 Balance 1061 1591 Result Diagrams: 10/30/18 04:52 10/30/18 04:52 Phys Exam - Physical Examination Constitutional: NAD HEENT: PERRLA Neck: no JVD Wheezing throughout irregularly irregular, no murmur Gastrointestinal: soft, non-tender, no distention Musculoskeletal: no edema Neurological: moves all 4 limbs Psychiatric: A&O x 3 Dx/Plan (1) Acute metabolic encephalopathy Code(s): G93.41 - METABOLIC ENCEPHALOPATHY Status: Chronic (2) Acute renal failure Status: Acute (3) BPH (benign prostatic hyperplasia) Code(s): N40.0 - BENIGN PROSTATIC HYPERPLASIA WITHOUT LOWER URINRY TRACT SYMP Status: Chronic (4) Hyperkalemia Code(s): E87.5 - HYPERKALEMIA Status: Resolved (5) Hypotension Status: Resolved (6) Macrocytic anemia Code(s): D53.9 - NUTRITIONAL ANEMIA, UNSPECIFIED Status: Chronic (7) COPD (chronic obstructive pulmonary disease) Status: Chronic (8) Chronic back pain Code(s): M54.9 - DORSALGIA, UNSPECIFIED; G89.29 - OTHER CHRONIC PAIN Status: Chronic (9) GERD (gastroesophageal reflux disease) Code(s): K21.9 - GASTRO-ESOPHAGEAL REFLUX DISEASE WITHOUT ESOPHAGITIS Status: Chronic (10) HLD (hyperlipidemia) Code(s): E78.5 - HYPERLIPIDEMIA, UNSPECIFIED Status: Chronic (11) HTN (hypertension) Code(s): I10 - ESSENTIAL (PRIMARY) HYPERTENSION Status: Chronic (12) UTI (urinary tract infection) Status: Acute (13) Physical deconditioning Code(s): R53.81 - OTHER MALAISE Status: Acute (14) Atrial fibrillation with RVR Code(s): I48.91 - UNSPECIFIED ATRIAL FIBRILLATION Status: Acute - Plan Plan: 1. Afib w/RVR - rate controlled on drip - due to new dx, will consult cardiology for possible conversion - on heparin for ppx 2. Acute renal failure related to ATN - Renal function improving, continue to monitor 3. Hyperkalemia, resolved 4. Macrocytic anemia - Continue to monitor - appears folate deficient, will start PO 5. COPD exacerbation - O2 demand at baseline - continue duoneb and steroids 6. Hypotension, resolved 7. BPH - continue flomax - follow up with urology outpatient for further management 8. UTI - Apparently both enterococcus and non hemolytic strep. Continue abx 9. Deconditioning - consult rehab 10. Metabolic encephalopathy, resolved Dispo:currently stable, continue to monitor while renal fxn improves Addendum - Attending - Attending Attestation Date/Time: 10/30/18 1301 I personally evaluated the patient and discussed the management with Dr. Vieyra I agree with the History, Examination, Assessment and Plan documented above with any addition or exceptions noted below. Note new onset AF with RVR on heparin and diltiazem drip. Patient on amoxil pending urine culture final sensitivities. Patient at home was rutinely administered ativan QHS and daily prn continue to observe for s/s benzodiazepine withdrawal and he receiving prn doses Patient refuses bedpan however efforts to use bedside commode appears to severely challenges the patient given his current level of de-conditioning.
[2018-10-30] MEDS: Aspirin 81 mg Enteric Coated Tablet PO SCH (10:13)
[2018-10-30] MEDS: Senokot S 8.6-50 MG TAB PO SCH ×2 (10:14→20:42)
[2018-10-30] MEDS: Tamsulosin HCl 0.4 MG CAP PO SCH (10:14)
[2018-10-30] MEDS: Folic Acid 1 MG TAB PO SCH (10:14)
[2018-10-30] MEDS: AMOXicillin 250 MG CAP PO SCH ×3 (10:15→20:42)
[2018-10-30] MEDS: Heparin 5,000 UNITS/ML VIAL SC SCH ×3 (10:15→20:42)
[2018-10-30] MEDS: Fluticasone Propionate Nasal Spray 16 gm Bottle NASAL SCH (10:15)
[2018-10-30] MEDS: Lorazepam 2 MG/ML VIAL SLOW IVP PRN ×2 (10:16→17:46)
[2018-10-30] MEDS: Nicotine 14 MG PATCH TD SCH (10:19)
[2018-10-30 11:13] LABS: Troponin I 0.018 ng/mL (< 0.028)
--- NOTE | 2018-10-30 13:26 | PRG ---
DATE OF SERVICE: 10/30/2018 SERVICE: Pulmonary Medicine. INTERVAL HISTORY: The patient is doing fine from respiratory standpoint. He actually says that he is breathing comfortably. That being said, he has accessory muscle use, and has [id number] respiratory distress based on the way I am looking at him. He denies any current fevers or chills. His cough is improving. He has no specific complaints of diarrhea, chest pain, nausea, or vomiting. For the most part, he is tolerating p.o., though remains tachypneic. PHYSICAL EXAMINATION: VITAL SIGNS: Afebrile with a T-max of 99.1, pulse 102, blood pressure 127/84, respirations 16, and saturation 100% on 2L nasal cannula. GENERAL: The patient is awake and alert, in no apparent distress. LUNGS: Reduced air entry with a prolonged expiratory phase. Wheezing and crackles are both present. No rhonchi. HEART: Normal rate and regular. ABDOMEN: Soft, nontender, and nondistended. Bowel sounds are positive. MUSCULOSKELETAL: No cyanosis or clubbing. No pitting in bilateral lower extremities. NEUROLOGIC: Grossly nonfocal. LABORATORY DATA: Sodium 141 and creatinine 3.58. Basic metabolic profile is otherwise unremarkable. Magnesium and phosphorous are unremarkable. TSH is low and free T4 is also low. Troponin is negative. Hemoglobin 9.5. Urine culture is growing Staph species as well as Enterococcus faecalis. ASSESSMENT: 1. Acute on chronic hypoxic and hypercapnic respiratory failure. 2. Chronic obstructive pulmonary disease with acute exacerbation. 3. Severe sepsis secondary to complicated urinary tract infection. 4. Urinary tract infection secondary to Enterococcus species. 5. Acute kidney injury on chronic kidney disease 3. DISCUSSION AND PLAN: IV fluids will be interrupted altogether. We will continue antibiotics, nebulized medications, and steroids. I will put him on BiPAP to be used on an as-needed basis to help with work of breathing. Hopefully, this will facilitate transitioning him out of bed to a bedside commode back again. I will allow him to auto-diurese through time. Pulmonary/Critical Care will continue to follow along. Job ID: [id number]
--- NOTE | 2018-10-30 14:58 | PRG ---
DATE OF SERVICE: 10/30/2018 SUBJECTIVE: This is a 73-year-old gentleman being seen for acute kidney injury. The patient denied any nausea, vomiting, or chest pain. OBJECTIVE: CONSTITUTIONAL: On examination, the patient is awake and alert. VITAL SIGNS: Afebrile, pulse 102, breathing 16, blood pressure 164/74. GENERAL APPEARANCE AND MENTAL STATUS: Fair. HEAD/NECK: Normocephalic. Atraumatic. EYES: EOMI. No deformity. EARS: Clear. No ulcers. NOSE: Intact. No lesions. MOUTH: Clear. No discharge. THROAT: Clear. No exudate. LUNGS: Clear. No crackles. CARDIAC: S1, S2. No rub. ABDOMEN: Benign. Bowel sounds positive. GENITALIA/RECTUM: Schultz absent. BACK/EXTREMITIES: Edema 0+. NEUROLOGICAL: Alert and motor intact. SKIN: LYMPHATICS: LABORATORY DATA: Reviewed. ASSESSMENT AND PLAN: 1. Chronic kidney disease stage 4, stable. 2. Acute kidney injury due to acute tubular necrosis, improved. 3. Hypertension, stable. 4. Anemia, stable. No indication for dialysis. Job ID: [id number]
[2018-10-30] MEDS ORDERED: Warfarin Sodium 5 MG TAB PO SCH (17:00)
--- NOTE | 2018-10-30 20:29 | CON ---
DATE OF CONSULTATION: HISTORY: The patient is a 73-year-old gentleman with severe COPD who was admitted with increasing dyspnea who developed a rapid irregular heart rhythm. The patient has a history of aortic aneurysm repair. He has been seen by Dr. Cedeño. The patient has no known cardiac history. He was admitted with dyspnea, noted to be in a rapid irregular heart rhythm. The patient denies having any chest discomfort. PAST MEDICAL HISTORY: 1. COPD. 2. Sleep apnea. 3. History of aortic aneurysm. 4. BPH. PAST SURGICAL HISTORY: He has had endovascular repair of a AAA and knee surgery. SOCIAL HISTORY: Long history of tobacco abuse. FAMILY HISTORY: No strong family history of coronary artery disease. MEDICATIONS: On admission see nursing list. REVIEW OF SYSTEMS: Notable for increasing dyspnea. PHYSICAL EXAMINATION: GENERAL: This is an ill-appearing gentleman in mild distress. He is slightly confused with a blood pressure of 164/71. NECK: Showed no jugular venous distention. LUNGS: Bilateral wheezes throughout both lung nicole. HEART: Regular rate and rhythm. Normal S1, S2. ABDOMEN: Distended. EXTREMITIES: Show mild bilateral edema. VASCULAR: Radial pulse 2+. LABORATORY RESULTS: Sodium 141, potassium 4.4, chloride 109, bicarbonate 24, BUN 79, creatinine 3.58, glucose 139. White blood cell count 6.5, hemoglobin 9.4, hematocrit 29.5, and platelets are 190. His EKG revealed him to have atrial fibrillation with a nonspecific T-wave abnormality. IMPRESSION: 1. New onset atrial fibrillation. 2. History of aortic aneurysm repair. 3. Severe chronic obstructive pulmonary disease. 4. Renal insufficiency. 5. Hypertension. This gentleman presents with new onset atrial fibrillation. 6. The patient with his chronic renal insufficiency. Because of the patient chronic renal insufficiency I would recommend he be placed on Coumadin. The patient converted with IV Cardizem. We will start p.o. Cardizem. We will follow this patient with you through his hospitalization. Job ID: [id number]
[2018-10-30] MEDS: Acetaminophen 325 MG TAB PO PRN (20:51)
[2018-10-31] MEDS: methylPREDNISolone Sod Succ 40 MG VIAL IVP SCH ×5 (00:08→23:50)
[2018-10-31 05:24] LABS: Hemoglobin 9.5 g/dL (14.0-18.0); Platelet Count 208 thou/uL (130-400)
[2018-10-31 05:32] LABS: INR-International Normal Ratio 1.3; Prothrombin Time 16.4 SEC (12.0-14.7)
[2018-10-31 05:44] LABS: Anion Gap 13 mmol/L (10-20); BUN (Urea Nitrogen) 79 mg/dL (8.4-25.7); Calc. Creatinine Clearance 32 mL/min (70-130); Calcium 8.7 mg/dL (7.8-10.44); Carbon Dioxide 23 mmol/L (23-31); Chloride 111 mmol/L (98-107); Estimated GFR-MDRD 19; Glucose 159 mg/dL (83-110); Potassium 4.4 mmol/L (3.5-5.1); Sodium 143 mmol/L (136-145)
--- NOTE | 2018-10-31 06:52 | PDOC.FM ---
- Subjective Subjective: This morning patient was seated in chair with BiPAP. Overall patient is doing well and attempting to get out of bed more often. Patient feels that he is generally breathing well and is getting some benefit from BiPAP when up. No acute events over night. - Objective MAR Reviewed: Yes Vital Signs & Weight: Vital Signs (12 hours) Temp Pulse Resp Pulse Ox 10/31/18 04:16 98.4 F 10/31/18 00:18 79 22 H 100 10/31/18 00:00 98.5 F 10/30/18 20:00 97.6 F 97 Weight Weight 112.718 kg Most Recent Monitor Data Heart Rate from ECG 80 NIBP 175/74 NIBP BP-Mean 107 Respiration from ECG 23 SpO2 100 I&O: 10/29/18 10/30/18 10/31/18 06:59 06:59 06:59 Intake Total 1721 4091 640 Output Total 660 2500 1350 Balance 1061 1591 -710 Result Diagrams: 10/31/18 05:05 11/01/18 05:14 Phys Exam - Physical Examination Constitutional: NAD HEENT: moist MMs Neck: no JVD Poor air movement and wheezing throughout. Muffled heart sounds Gastrointestinal: soft, non-tender, no distention Musculoskeletal: no edema Neurological: moves all 4 limbs Psychiatric: A&O x 3 Skin: no rash Dx/Plan (1) Atrial fibrillation with RVR Code(s): I48.91 - UNSPECIFIED ATRIAL FIBRILLATION Status: Acute (2) UTI (urinary tract infection) Status: Acute (3) COPD (chronic obstructive pulmonary disease) Status: Chronic Qualifiers: COPD type: COPD with acute exacerbation Qualified Code(s): J44.1 - Chronic obstructive pulmonary disease with (acute) exacerbation (4) Acute renal failure Status: Acute (5) Acute metabolic encephalopathy Code(s): G93.41 - METABOLIC ENCEPHALOPATHY Status: Resolved (6) BPH (benign prostatic hyperplasia) Code(s): N40.0 - BENIGN PROSTATIC HYPERPLASIA WITHOUT LOWER URINRY TRACT SYMP Status: Chronic (7) Hyperkalemia Code(s): E87.5 - HYPERKALEMIA Status: Resolved (8) Hypotension Status: Resolved (9) Macrocytic anemia Code(s): D53.9 - NUTRITIONAL ANEMIA, UNSPECIFIED Status: Chronic (10) Chronic back pain Code(s): M54.9 - DORSALGIA, UNSPECIFIED; G89.29 - OTHER CHRONIC PAIN Status: Chronic (11) GERD (gastroesophageal reflux disease) Code(s): K21.9 - GASTRO-ESOPHAGEAL REFLUX DISEASE WITHOUT ESOPHAGITIS Status: Chronic (12) HLD (hyperlipidemia) Code(s): E78.5 - HYPERLIPIDEMIA, UNSPECIFIED Status: Chronic (13) HTN (hypertension) Code(s): I10 - ESSENTIAL (PRIMARY) HYPERTENSION Status: Chronic (14) Physical deconditioning Code(s): R53.81 - OTHER MALAISE Status: Acute (15) Hypothyroid Code(s): E03.9 - HYPOTHYROIDISM, UNSPECIFIED Status: Suspected - Plan Plan: 1. Afib w/RVR - converted to NSR yesterday with dilt drip. Off of drip today and on PO - Cards consulted, has been started of warfarin 2. COPD exacerbation - O2 demand at baseline - continue duoneb and steroids 3. UTI - Apparently both enterococcus and non hemolytic strep. Continue abx 4. Acute renal failure related to ATN - Improving 5. Hyperkalemia, resolved 6. Macrocytic anemia - stable, asymptomatic 7. Hypotension, resolved 8. BPH - continue flomax - follow up with urology outpatient for further management 9. Deconditioning - consult rehab. Patient is resistant to the idea of rehab this morning. He wants to go home with his previous outpatient pt. I advised that his best option would be inpatient rehab followed by outpatient. He will discuss with 10. Metabolic encephalopathy, resolved 11. Hypothyroid - labs c/w central hypothyroid. Would recheck labs and work up further after hospitalization. Dispo:currently stable, continue to monitor while renal fxn improves. Likely LOS 1-2 days Addendum - Attending - Attending Attestation Date/Time: 11/01/18 8330 I personally evaluated the patient and discussed the management with Dr. Vieyra on 10/31/2018 I agree with the History, Examination, Assessment and Plan documented above with any addition or exceptions noted below - Patient without complaiints. States breathing is better. Afebrile VSS. A/P: 1) COPD exacerbation - Continue nebs, O2, steroids. 2) LENNOX- improving. 3) UTI - continue abx
[2018-10-31] MEDS: Budesonide 0.5 MG/2 ML NEB NEB SCH ×2 (08:01→19:56)
[2018-10-31] MEDS: Arformoterol 15 MCG/2 ML NEB NEB SCH ×2 (08:01→19:56)
--- NOTE | 2018-10-31 08:26 | PRG ---
DATE OF SERVICE: 10/31/2018 DISCUSSION: Mr. Caldera remains in the intermediate care unit using BiPAP intermittently. He has no complaints with his breathing at this time. OBJECTIVE: VITAL SIGNS: Temperature is 98.1, pulse 80, blood pressure 175/74. 24-hour intake 640, output 1350. HEENT: Unremarkable. NECK: No JVD. LUNGS: Prolonged expiratory phase. CARDIAC: S1, S2. Regular. ABDOMEN: Soft. EXTREMITIES: No edema. LABORATORY DATA: Hemoglobin 9.5, hematocrit 29.3, and platelet count 208. Sodium 143, potassium 4.4, chloride 111, CO2 23, BUN 79, creatinine 3.2, glucose 159. ASSESSMENT: 1. Acute on chronic hypoxic respiratory failure. 2. Chronic obstructive pulmonary disease with exacerbation. 3. Acute kidney injury. 4. Tobacco abuse. 5. Atrial fibrillation. PLAN: 1. Continue BiPAP intermittently. 2. PT for strengthening. 3. Cardiac rate control per Cardiology. 4. Continue steroids and nebulization therapy. Job ID: [id number]
[2018-10-31] MEDS: AMOXicillin 250 MG CAP PO SCH ×3 (10:04→20:52)
[2018-10-31] MEDS: Azithromycin 250 MG TAB PO SCH (10:05)
[2018-10-31] MEDS: Nicotine 14 MG PATCH TD SCH (10:05)
[2018-10-31] MEDS: Senokot S 8.6-50 MG TAB PO SCH ×2 (10:06→20:52)
[2018-10-31] MEDS: Tamsulosin HCl 0.4 MG CAP PO SCH (10:06)
[2018-10-31] MEDS: Aspirin 81 mg Enteric Coated Tablet PO SCH (10:06)
[2018-10-31] MEDS: Heparin 5,000 UNITS/ML VIAL SC SCH ×3 (10:06→20:51)
[2018-10-31] MEDS: Folic Acid 1 MG TAB PO SCH (10:06)
[2018-10-31] MEDS: Fluticasone Propionate Nasal Spray 16 gm Bottle NASAL SCH (10:07)
[2018-10-31] MEDS: Lorazepam 2 MG/ML VIAL SLOW IVP PRN (10:41)
--- NOTE | 2018-10-31 14:12 | PRG ---
DATE OF SERVICE: 10/31/2018 SUBJECTIVE: Patient was seen and examined at bedside and overnight events noted. Patient denies any shortness of breath or chest pain or palpitation. No history of nausea or vomiting or diarrhea or fever or chills or cramps. OBJECTIVE: GENERAL: This is a well-built male in no apparent distress. VITAL SIGNS: Temperature 99.2. Heart rate 79. Respiratory rate . Blood pressure 130/64. HEENT: Atraumatic, normocephalic. Oral mucosa is moist NECK: Supple. CARDIOVASCULAR: S1, S2 heard. Rate and rhythm regular. RESPIRATORY: Clear to auscultation. GASTROINTESTINAL: Abdomen is soft. MUSCULOSKELETAL: No tenderness. No edema. DERMATOLOGIC: No skin rash. NEUROLOGIC: Alert and awake and oriented X3. No focal neurologic deficits. Moving all the extremities. PSYCHIATRIC: Mood and affect normal. LABORATORY DATA: Potassium is 4.4, BUN is 79, creatinine is 3.2 from 3.5. ASSESSMENT AND PLAN: 1. Acute kidney injury on chronic kidney stage 4 with improvement in creatinine. Admission creatinine was 7 and now it is 3.2. Baseline around 1.5 to 2. We will monitor. Avoid nephrotoxins. 2. Anemia. 3. Hypertension. 4. Overall renal function continues to get better. Avoid nephrotoxin. 5. Hyperkalemia, better. Job ID: [id number]
[2018-10-31] MEDS: Acetaminophen 325 MG TAB PO PRN (14:41)
[2018-10-31] MEDS ORDERED: Warfarin Sodium 7.5 MG TAB PO SCH (17:00)
[2018-10-31] MEDS: Ondansetron PF 4 MG/2 ML Vial IVP PRN (19:58)
[2018-11-01] MEDS: Promethazine HCl 12.5 MG in Sodium Chloride 0.9% 50 ML IVPB PRN ×2 (00:34→05:46)
--- NOTE | 2018-11-01 03:29 | PDOC.EVN ---
Event Note - Event Note Event Note: S: residents called by nursing staff for concern that pt appeared to have increased work of breathing. By the time of evaluation pt had since received another duoneb treatment and reported improvement of SOB though he was still not comfortable. Denied CP, denied cough, has no other complaints at this time O: vitals stable CARD: RRR, no murmur PULM: bilateral expiratory wheezing, decent air mvmt CXR: on initial eval appears to be unchanged from previous CXR EXT: no edema A/P: Does not appear to be fluid overloaded. Likely just fluctuation of pt COPD , he has been requiring bipap on and off during admission. Will await radiologists read.
[2018-11-01] MEDS: Ondansetron ODT 4 MG TAB PO PRN ×2 (04:07→20:38)
[2018-11-01] MEDS: Acetaminophen 325 MG TAB PO PRN (04:14)
[2018-11-01] MEDS: methylPREDNISolone Sod Succ 40 MG VIAL IVP SCH ×3 (05:45→17:33)
[2018-11-01] MEDS: Bacteriostatic Water 30 ML VIAL FS PRN (05:46)
[2018-11-01 05:53] LABS: Prothrombin Time 22.6 SEC (12.0-14.7)
[2018-11-01 06:12] LABS: Anion Gap 14 mmol/L (10-20); BUN (Urea Nitrogen) 76 mg/dL (8.4-25.7); Calc. Creatinine Clearance 36 mL/min (70-130); Calcium 8.7 mg/dL (7.8-10.44); Carbon Dioxide 24 mmol/L (23-31); Chloride 109 mmol/L (98-107); Estimated GFR-MDRD 22; Glucose 157 mg/dL (83-110); Potassium 4.7 mmol/L (3.5-5.1); Sodium 142 mmol/L (136-145)
--- NOTE | 2018-11-01 06:51 | PDOC.FM ---
- Subjective Subjective: Patient seen at bedside this morning resting comfortably. Over night there was some concern for increased work of breathing and patient was placed on BiPAP. He is currently not needing BiPAP and O2 sat is normal on room air. He states that he is breathing at his normal. Otherwise no acute events yesterday. No new complaints. - Objective MAR Reviewed: Yes Vital Signs & Weight: Vital Signs (12 hours) Temp Pulse BP Pulse Ox 11/01/18 06:37 160/80 H 11/01/18 04:21 140/73 11/01/18 03:56 98.7 F 11/01/18 03:32 87 11/01/18 02:46 150/78 H 11/01/18 00:08 160/78 H 11/01/18 00:00 98.3 F 95 10/31/18 23:45 95 10/31/18 20:00 95 10/31/18 19:57 95 10/31/18 19:56 95 10/31/18 19:55 95 10/31/18 19:32 99.2 F Weight Weight 111.039 kg Most Recent Monitor Data Heart Rate from ECG 84 NIBP 167/77 NIBP BP-Mean 107 Respiration from ECG 25 SpO2 99 I&O: 10/30/18 10/31/18 11/01/18 06:59 06:59 06:59 Intake Total 4091 640 1430 Output Total 2500 1350 1600 Balance 1591 -710 -170 Result Diagrams: 10/31/18 05:05 11/01/18 05:14 Radiology Reviewed by me: Yes (Possible increased lung markings b/l) Radiology: Pending Phys Exam - Physical Examination Constitutional: NAD HEENT: moist MMs Neck: no JVD Wheezing throughout, no rales Cardiovascular: RRR, no significant murmur muffled heart sounds, difficult exam dt wheezing Gastrointestinal: soft, non-tender, no distention Musculoskeletal: no edema Neurological: moves all 4 limbs Psychiatric: normal affect, A&O x 3 Skin: no rash Dx/Plan (1) Atrial fibrillation with RVR Code(s): I48.91 - UNSPECIFIED ATRIAL FIBRILLATION Status: Acute (2) UTI (urinary tract infection) Status: Acute (3) COPD (chronic obstructive pulmonary disease) Status: Chronic Qualifiers: COPD type: COPD with acute exacerbation Qualified Code(s): J44.1 - Chronic obstructive pulmonary disease with (acute) exacerbation (4) Acute renal failure Status: Acute (5) Acute metabolic encephalopathy Code(s): G93.41 - METABOLIC ENCEPHALOPATHY Status: Resolved (6) BPH (benign prostatic hyperplasia) Code(s): N40.0 - BENIGN PROSTATIC HYPERPLASIA WITHOUT LOWER URINRY TRACT SYMP Status: Chronic (7) Hyperkalemia Code(s): E87.5 - HYPERKALEMIA Status: Resolved (8) Hypotension Status: Resolved (9) Macrocytic anemia Code(s): D53.9 - NUTRITIONAL ANEMIA, UNSPECIFIED Status: Chronic (10) Chronic back pain Code(s): M54.9 - DORSALGIA, UNSPECIFIED; G89.29 - OTHER CHRONIC PAIN Status: Chronic (11) GERD (gastroesophageal reflux disease) Code(s): K21.9 - GASTRO-ESOPHAGEAL REFLUX DISEASE WITHOUT ESOPHAGITIS Status: Chronic (12) HLD (hyperlipidemia) Code(s): E78.5 - HYPERLIPIDEMIA, UNSPECIFIED Status: Chronic (13) HTN (hypertension) Code(s): I10 - ESSENTIAL (PRIMARY) HYPERTENSION Status: Chronic (14) Physical deconditioning Code(s): R53.81 - OTHER MALAISE Status: Acute (15) Hypothyroid Code(s): E03.9 - HYPOTHYROIDISM, UNSPECIFIED Status: Suspected - Plan Plan: 1. Afib w/RVR - Has been in NSR since initial conversion. - Continue PO dilt and warfarin. INR 2.0 today - Cards consulted 2. COPD exacerbation - O2 demand at baseline - continue duoneb and steroids - BiPAP prn 3. UTI - Continue abx, today is day 4. Total course should be 1 week. 4. Acute renal failure related to ATN - Improving, baseline Cr is below 2. At 2.8 today 5. Hyperkalemia, resolved 6. Macrocytic anemia - stable, asymptomatic 7. Hypotension, resolved 8. BPH - continue flomax - follow up with urology outpatient for further management 9. Deconditioning - rehab would be best choice at this time, however patient refuses. He wants to go home and continue outpatient PT 10. Metabolic encephalopathy, resolved 11. Hypothyroid - labs c/w central hypothyroid. Would recheck labs and work up further after hospitalization. Dispo:currently stable, continue to monitor while renal fxn improves. Likely LOS 1-2 days Addendum - Attending - Attending Attestation Date/Time: 11/01/18 5715 I personally evaluated the patient and discussed the management with Dr. Vieyra I agree with the History, Examination, Assessment and Plan documented above with any addition or exceptions noted below - Patient with some increased SOB this morning. Intermittently requiring BiPap. Afebrile VSS A/P: 1) COPD exacerbation - continue current treatment. Will need to be off BiPap prior to discharge. 2) LENNOX- improved; continue to monitor 3) HTN- stable
[2018-11-01] MEDS: Budesonide 0.5 MG/2 ML NEB NEB SCH ×2 (07:12→18:17)
[2018-11-01] MEDS: Arformoterol 15 MCG/2 ML NEB NEB SCH ×2 (07:12→18:15)
--- NOTE | 2018-11-01 08:54 | RAD ---
CHEST ONE VIEW: Indication: Increased work of breathing. Comparison: 10-27-18 FINDINGS: There is worsening pulmonary vascular congestion and perihilar and interstitial opacities. The costop hrenic angles are sharp. Heart size is normal. No acute osseous abnormality is evident. IMPRESSION: 1. Worsening perihilar airspace opacities may reflect worsening pneumonia or edema. Follow up is analia mmended. 2. Chronic lung changes are stable. POS: BH
[2018-11-01] MEDS: AMOXicillin 250 MG CAP PO SCH ×3 (10:06→20:38)
[2018-11-01] MEDS: Nicotine 14 MG PATCH TD SCH (10:07)
[2018-11-01] MEDS: Senokot S 8.6-50 MG TAB PO SCH ×2 (10:08→20:37)
[2018-11-01] MEDS: Aspirin 81 mg Enteric Coated Tablet PO SCH (10:10)
[2018-11-01] MEDS: Tamsulosin HCl 0.4 MG CAP PO SCH (10:10)
[2018-11-01] MEDS: Folic Acid 1 MG TAB PO SCH (10:10)
[2018-11-01] MEDS: Heparin 5,000 UNITS/ML VIAL SC SCH (10:11)
--- NOTE | 2018-11-01 10:17 | PRG ---
DATE OF SERVICE: 11/01/2018 SUBJECTIVE: The patient is not doing well. He is intermittently requiring BiPAP. He is fairly insistent on going home. OBJECTIVE: VITAL SIGNS: Temperature 97.7, pulse 94, respirations 20. The last blood pressure recorded was 167/77. 24-hour intake 1430, output 1600. Weight 244 pounds. GENERAL: He is in extreme respiratory distress with every breath. HEENT: Unremarkable. NECK: No JVD. LUNGS: Intermittent bilateral expiratory wheezing. CARDIAC: S1 and S2. Regular. ABDOMEN: Soft. EXTREMITIES: Edematous. LABORATORY DATA: Sodium 142, potassium 4.7, BUN 76, creatinine 2.8, glucose 157. INR is 2.0. DIAGNOSTIC DATA: Chest x-ray demonstrates hyperinflation without infiltrate. ASSESSMENT: 1. Severe chronic obstructive pulmonary disease with exacerbation. 2. Acute on chronic hypoxic respiratory failure. 3. Acute kidney injury. 4. Tobacco abuse. 5. Atrial fibrillation. PLAN: 1. The patient is not strong enough to go home. I would agree that rehab will be the best option if the patient would ultimately agree. 2. Continue steroids, nebulization therapy, and antibiotics. Continue intermittent BiPAP. Job ID: [id number]
--- NOTE | 2018-11-01 11:06 | PRG ---
DATE OF SERVICE: 11/01/2018 SUBJECTIVE: Patient was seen and examined at bedside and overnight events noted. Patient denies any shortness of breath or chest pain or palpitation. No history of nausea or vomiting or diarrhea or fever or chills or cramps. OBJECTIVE: GENERAL: This is a well-built male, in no apparent distress. VITAL SIGNS: Temperature 97.7. Heart rate 97. Respiratory rate 18. Blood pressure 158/90. HEENT: Atraumatic, normocephalic. Oral mucosa is moist NECK: Supple. CARDIOVASCULAR: S1, S2 heard. Rate and rhythm regular. RESPIRATORY: Clear to auscultation. GASTROINTESTINAL: Abdomen is soft. MUSCULOSKELETAL: No tenderness. No edema. DERMATOLOGIC: No skin rash. NEUROLOGIC: Alert and awake and oriented X3. No focal neurologic deficits. Moving all the extremities. PSYCHIATRIC: Mood and affect normal. LABORATORY DATA: Potassium 4.7, BUN is 76, creatinine is 2.8. ASSESSMENT AND PLAN: 1. Acute kidney injury on chronic kidney disease, stage 4 with improvement in creatinine. 2. Anemia. Monitor hemoglobin. 3. Hypertension. 4. Hyperkalemia, stable. Potassium is better. Avoid nephrotoxins. Job ID: [id number]
--- NOTE | 2018-11-01 16:04 | PQF ---
CLINICAL DOCUMENTATION IMPROVEMENT CLARIFICATION FORM: ICD-10 Updated PLEASE DO AN ADDENDUM TO THE PROGRESS NOTE WITH ANY DOCUMENTATION UPDATES OR ADDITIONS AND CARRY THROUGH TO DC SUMMARY. THANK YOU. DATE: 11/01/2018 ATTN: Dr. Betito Vieyra/ Attending Dr Antonio Sutton Please exercise your independent, professional judgment in responding to the clarification form. Clinical indicators are provided on the bottom of this form for your review Please check appropriate box(es): [ ] Sepsis due to UTI. [ x ] Severe sepsis with acute organ dysfunction of: Acute kidney failure ___ (Examples: respiratory failure, encephalopathy, acute kidney failure) [ ] Localized infection without sepsis [ ] Other diagnosis [ ] Unable to determine In addition, please specify: Present on Admission (POA): [ x] Yes [ ] No [ ] Unable to determine For continuity of documentation, please document condition throughout progress notes and discharge summary. Thank You. CLINICAL INDICATORS - SIGNS / SYMPTOMS / LABS H&P 10/27: presents as transfer from [place] for altered mental status. Metabolic encephalopathy 2/2 acute renal failure. 10/30([place]) Urine culture is growing Staph species as well as Enterococcus faecalis Acute on chronic hypoxic and hypercapnic respiratory failure. Severe sepsis secondary to complicated urinary tract infection. RISKS: H&P 10/27: 73 yo M with PMH BPH, COPD, HTN presents as transfer from [place] for altered mental status and decreased urine output. TREATMENT: MAR: Order 10/29: Amoxicillin 500 mg po TID. Order 10/27-10/29: Normal Saline 0.9% 1,000 ml IV 140 mls/hr Thank you, Barbara (This form is maintained as a part of the permanent medical record) 2015 [employer]. All Rights Reserved Barbara Petit RN, BSN [email or web address] Office: [phone] [facility]
[2018-11-01] MEDS: Lorazepam 2 MG/ML VIAL SLOW IVP PRN (18:15)
[2018-11-01] MEDS ORDERED: Diltiazem HCl 125 MG, Admixture Fee 1 EACH in Sodium Chloride 0.9% 100 ML IVPB SCH (19:15)
[2018-11-01] MEDS: Fluticasone Propionate Nasal Spray 16 gm Bottle NASAL SCH (20:08)
[2018-11-01] MEDS: Ondansetron PF 4 MG/2 ML Vial IVP PRN (22:04)
[2018-11-02] MEDS: methylPREDNISolone Sod Succ 40 MG VIAL IVP SCH ×5 (00:16→23:24)
[2018-11-02] MEDS: Lorazepam 2 MG/ML VIAL SLOW IVP PRN ×3 (00:56→23:23)
[2018-11-02 06:21] LABS: Hemoglobin 9.6 g/dL (14.0-18.0); Platelet Count 254 thou/uL (130-400)
[2018-11-02 06:25] LABS: INR-International Normal Ratio 3.6; Prothrombin Time 35.9 SEC (12.0-14.7)
[2018-11-02 06:41] LABS: Anion Gap 17 mmol/L (10-20); BUN (Urea Nitrogen) 74 mg/dL (8.4-25.7); Calc. Creatinine Clearance 40 mL/min (70-130); Calcium 8.8 mg/dL (7.8-10.44); Carbon Dioxide 21 mmol/L (23-31); Chloride 108 mmol/L (98-107); Estimated GFR-MDRD 25; Glucose 145 mg/dL (83-110); Potassium 4.8 mmol/L (3.5-5.1); Sodium 141 mmol/L (136-145)
--- NOTE | 2018-11-02 06:54 | PDOC.FM ---
- Subjective Subjective: Patient developed a repeat episode of afib with RVR over night and was restarted on dilt drip. Patient states that his breathing is labored, but closer to baseline. Overall patient is in moderate respiratory distress and speaks in 2-3 word sentences. Patient states that he plans to go home today - Objective MAR Reviewed: Yes Vital Signs & Weight: Vital Signs (12 hours) Temp Pulse Resp Pulse Ox 11/02/18 03:15 98.9 F 11/02/18 02:45 96 27 H 113 H 11/01/18 23:49 99.0 F 11/01/18 23:37 90 27 H 96 11/01/18 20:00 97 11/01/18 19:00 98.8 F Weight Weight 111.039 kg Most Recent Monitor Data Heart Rate from ECG 130 NIBP 155/87 NIBP BP-Mean 109 Respiration from ECG 32 SpO2 83 I&O: 10/31/18 11/01/18 11/02/18 06:59 06:59 06:59 Intake Total 640 1430 960 Output Total 1350 1600 800 Balance -710 -170 160 Result Diagrams: 11/02/18 05:39 11/03/18 04:16 Phys Exam - Physical Examination Constitutional: NAD HEENT: moist MMs Neck: no JVD Wheezing throughout Irregularly irregular Gastrointestinal: soft, non-tender, no distention, positive bowel sounds Musculoskeletal: no edema Neurological: non-focal, moves all 4 limbs slow frequency tremor in hands and feet, no change from previous exam Psychiatric: normal affect, A&O x 3 Skin: no rash Dx/Plan (1) Atrial fibrillation with RVR Code(s): I48.91 - UNSPECIFIED ATRIAL FIBRILLATION Status: Acute (2) UTI (urinary tract infection) Status: Acute (3) COPD (chronic obstructive pulmonary disease) Status: Chronic Qualifiers: COPD type: COPD with acute exacerbation Qualified Code(s): J44.1 - Chronic obstructive pulmonary disease with (acute) exacerbation (4) Acute renal failure Status: Acute (5) Acute metabolic encephalopathy Code(s): G93.41 - METABOLIC ENCEPHALOPATHY Status: Resolved (6) BPH (benign prostatic hyperplasia) Code(s): N40.0 - BENIGN PROSTATIC HYPERPLASIA WITHOUT LOWER URINRY TRACT SYMP Status: Chronic (7) Hyperkalemia Code(s): E87.5 - HYPERKALEMIA Status: Resolved (8) Hypotension Status: Resolved (9) Macrocytic anemia Code(s): D53.9 - NUTRITIONAL ANEMIA, UNSPECIFIED Status: Chronic (10) Chronic back pain Code(s): M54.9 - DORSALGIA, UNSPECIFIED; G89.29 - OTHER CHRONIC PAIN Status: Chronic (11) GERD (gastroesophageal reflux disease) Code(s): K21.9 - GASTRO-ESOPHAGEAL REFLUX DISEASE WITHOUT ESOPHAGITIS Status: Chronic (12) HLD (hyperlipidemia) Code(s): E78.5 - HYPERLIPIDEMIA, UNSPECIFIED Status: Chronic (13) HTN (hypertension) Code(s): I10 - ESSENTIAL (PRIMARY) HYPERTENSION Status: Chronic (14) Physical deconditioning Code(s): R53.81 - OTHER MALAISE Status: Acute (15) Hypothyroid Code(s): E03.9 - HYPOTHYROIDISM, UNSPECIFIED Status: Suspected - Plan Plan: 1. Afib w/RVR - Back on dilt drip. Currently in afib with rate 90-110 - Warfarin dc'd by cardiology yesterday. INR 3.0 today - Cards consulted, appreciate recommendations 2. COPD exacerbation - No real change today, continues to struggle to speak between breaths and has diffuse wheezing. Cannot ambulate more than a few steps dt SOB and requires intermittent BiPAP. - O2 demand at baseline - continue duoneb and steroids - BiPAP prn 3. UTI - Continue abx, today is day 5. Total course should be 1 week. 4. Acute renal failure related to ATN - Improving, baseline Cr is below 2. At 2.5 today 5. Hyperkalemia, resolved 6. Macrocytic anemia - stable, asymptomatic 7. Hypotension, resolved 8. BPH - continue flomax - follow up with urology outpatient for further management 9. Deconditioning - continue to recommend inpatient rehab, patient refuses 10. Metabolic encephalopathy, resolved 11. Hypothyroid - labs c/w central hypothyroid. Would recheck labs and work up further after hospitalization. Dispo:currently stable, however afib and respiratory status will have to improve before being safe to go home Addendum - Attending - Attending Attestation Date/Time: 11/03/18 0139 I personally evaluated the patient and discussed the management with Dr. Vieyra on 11/02/2018 I agree with the History, Examination, Assessment and Plan documented above with any addition or exceptions noted below- Patient with increased SOB/WOB today. Intermittently on BiPap. Afebrile VSS. A/P: 1) COPD exacerbation- continue nebs.steroids, BiPap as needed. 20 Deconditioning- PT as tolerated. Declines rehab/SNF placement. 3) A-fib with RVR- on diltiazem drip and being loaded with digoxin. Continue as per cardiology
[2018-11-02 07:13] VITALS: BMI 34.3
[2018-11-02] MEDS: Budesonide 0.5 MG/2 ML NEB NEB SCH ×2 (07:30→19:07)
[2018-11-02] MEDS: Arformoterol 15 MCG/2 ML NEB NEB SCH ×2 (07:30→19:07)
--- NOTE | 2018-11-02 08:13 | PRG ---
DATE OF SERVICE: 11/02/2018 SUBJECTIVE: Mr. [place] [facility]. He did not say much to me this morning. OBJECTIVE: VITAL SIGNS: On exam, his temperature is 98.9, pulse 90, blood pressure 126/75 and O2 saturation 96%. Intake for 24 hours 1660, output 1550. HEENT: Unremarkable. NECK: No JVD. LUNGS: Clear, but distant breath sounds. CARDIAC: S1, S2. Regular. ABDOMEN: Soft, obese. EXTREMITIES: No edema. LABORATORY DATA: Hemoglobin 9.6, hematocrit 29.6, platelet count 254. INR 3.6, sodium 141, potassium 4.8, chloride 108 CO2 of 21, BUN 74, creatinine 2.5, glucose 145. ASSESSMENT: 1. Acute respiratory failure requiring mechanical ventilation. 2. Severe chronic obstructive pulmonary disease with exacerbation. 3. Atrial fibrillation. 4. Acute on chronic renal insufficiency. 5. Tobacco abuse. PLAN: He is not ready to go home yet. His Coumadin is being held for the elevated INR. He will continue IV steroids, nebulization treatments and intermittent BiPAP. Job ID: [id number]
[2018-11-02] MEDS ORDERED: Cetirizine HCl 10 MG TAB PO SCH (09:00)
[2018-11-02] MEDS ORDERED: Digoxin 0.5 MG/2 ML AMP SLOW IVP SCH (10:00)
[2018-11-02] MEDS: AMOXicillin 250 MG CAP PO SCH ×3 (10:03→20:30)
[2018-11-02] MEDS: Tamsulosin HCl 0.4 MG CAP PO SCH (10:03)
[2018-11-02] MEDS: Loratadine 10 MG TAB PO SCH (10:03)
[2018-11-02] MEDS: Fluticasone Propionate Nasal Spray 16 gm Bottle NASAL SCH (10:03)
[2018-11-02] MEDS: Senokot S 8.6-50 MG TAB PO SCH ×3 (10:04→20:32)
[2018-11-02] MEDS: Azithromycin 250 MG TAB PO SCH (10:04)
[2018-11-02] MEDS: Folic Acid 1 MG TAB PO SCH (10:04)
[2018-11-02] MEDS: Aspirin 81 mg Enteric Coated Tablet PO SCH (10:04)
[2018-11-02] MEDS: Digoxin 0.5 MG/2 ML AMP SLOW IVP SCH ×2 (10:05→14:06)
[2018-11-02] MEDS: Nicotine 14 MG PATCH TD SCH (10:26)
--- NOTE | 2018-11-02 11:26 | PRG ---
DATE OF SERVICE: 11/02/2018 SUBJECTIVE: Patient was seen and examined at bedside and overnight events noted. Patient denies any shortness of breath or chest pain or palpitation. No history of nausea or vomiting or diarrhea or fever or chills or cramps. OBJECTIVE: GENERAL: This is a well-built male, in no apparent distress. VITAL SIGNS: Temperature 98.9. Heart rate 92. Respiratory rate 18. Blood pressure 126/75. HEENT: Atraumatic, normocephalic. Oral mucosa is moist NECK: Supple. CARDIOVASCULAR: S1, S2 heard. Rate and rhythm regular. RESPIRATORY: Clear to auscultation. GASTROINTESTINAL: Abdomen is soft. MUSCULOSKELETAL: No tenderness. No edema. DERMATOLOGIC: No skin rash. NEUROLOGIC: Alert and awake and oriented X3. No focal neurologic deficits. Moving all the extremities. PSYCHIATRIC: Mood and affect normal. LABORATORY DATA: Potassium is 4.8, BUN is 74, creatinine is 2.5. ASSESSMENT AND PLAN: 1. Acute kidney injury on chronic kidney stage 4 with improvement. 2. Anemia. 3. Hypertension. 4. Hyperkalemia, better. We will monitor labs. Creatinine is getting better. Job ID: [id number]
[2018-11-02] MEDS: Diltiazem 125 MG in Sodium Chloride 0.9% 100 ML IVPB SCH (11:29)
[2018-11-02] MEDS: Ondansetron PF 4 MG/2 ML Vial IVP PRN (11:30)
[2018-11-02] MEDS: Bacteriostatic Water 30 ML VIAL FS PRN (11:35)
[2018-11-02] MEDS ORDERED: Digoxin 0.125 MG TAB PO SCH (14:00)
[2018-11-03] MEDS: Acetaminophen 325 MG TAB PO PRN ×3 (04:03→19:31)
[2018-11-03 04:47] LABS: Prothrombin Time 44.1 SEC (12.0-14.7)
[2018-11-03 04:59] LABS: INR-International Normal Ratio 4.7
[2018-11-03 05:01] LABS: Anion Gap 15 mmol/L (10-20); BUN (Urea Nitrogen) 73 mg/dL (8.4-25.7); Calc. Creatinine Clearance 39 mL/min (70-130); Carbon Dioxide 24 mmol/L (23-31); Chloride 108 mmol/L (98-107); Estimated GFR-MDRD 25; Glucose 174 mg/dL (83-110); Potassium 4.9 mmol/L (3.5-5.1); Sodium 142 mmol/L (136-145)
[2018-11-03] MEDS: methylPREDNISolone Sod Succ 40 MG VIAL IVP SCH ×3 (05:19→19:31)
[2018-11-03] MEDS: Lorazepam 2 MG/ML VIAL SLOW IVP PRN ×3 (05:19→19:31)
--- NOTE | 2018-11-03 06:19 | PDOC.FM ---
- Subjective Subjective: Per , patient had a rough night last night. Patient had difficulty with breathing a required BiPAP. He apparently has CPAP at home, however never wears it. He was difficult to arouse this morning, however did not appear to be in acute respiratory distress. - Objective MAR Reviewed: Yes Vital Signs & Weight: Vital Signs (12 hours) Temp Pulse Resp Pulse Ox 11/03/18 03:11 99.3 F 11/03/18 00:10 86 28 H 99 11/02/18 23:32 98.8 F 11/02/18 21:19 98.6 F 11/02/18 21:00 99.2 F 11/02/18 20:00 98.6 F 11/02/18 19:23 98.4 F 11/02/18 19:07 101 H 26 H 98 11/02/18 19:05 92 L Weight Weight 110.586 kg Most Recent Monitor Data Heart Rate from ECG 81 NIBP 139/68 NIBP BP-Mean 91 Respiration from ECG 24 SpO2 100 I&O: 11/01/18 11/02/18 11/03/18 06:59 06:59 06:59 Intake Total 1430 1616 1040 Output Total 1600 1550 2600 Balance -170 66 -1560 Result Diagrams: 11/02/18 05:39 11/03/18 04:16 Phys Exam - Physical Examination Constitutional: NAD HEENT: moist MMs Neck: no JVD Wheezing throughout, improved from prior day. No rales/rhonchi Cardiovascular: RRR, no significant murmur Gastrointestinal: soft, non-tender, no distention Mild edema to knee b/l Neurological: moves all 4 limbs Skin: no rash Dx/Plan (1) Atrial fibrillation with RVR Code(s): I48.91 - UNSPECIFIED ATRIAL FIBRILLATION Status: Acute (2) UTI (urinary tract infection) Status: Acute (3) COPD (chronic obstructive pulmonary disease) Status: Chronic Qualifiers: COPD type: COPD with acute exacerbation Qualified Code(s): J44.1 - Chronic obstructive pulmonary disease with (acute) exacerbation (4) Acute renal failure Status: Acute (5) Acute metabolic encephalopathy Code(s): G93.41 - METABOLIC ENCEPHALOPATHY Status: Resolved (6) BPH (benign prostatic hyperplasia) Code(s): N40.0 - BENIGN PROSTATIC HYPERPLASIA WITHOUT LOWER URINRY TRACT SYMP Status: Chronic (7) Hyperkalemia Code(s): E87.5 - HYPERKALEMIA Status: Resolved (8) Hypotension Status: Resolved (9) Macrocytic anemia Code(s): D53.9 - NUTRITIONAL ANEMIA, UNSPECIFIED Status: Chronic (10) Chronic back pain Code(s): M54.9 - DORSALGIA, UNSPECIFIED; G89.29 - OTHER CHRONIC PAIN Status: Chronic (11) GERD (gastroesophageal reflux disease) Code(s): K21.9 - GASTRO-ESOPHAGEAL REFLUX DISEASE WITHOUT ESOPHAGITIS Status: Chronic (12) HLD (hyperlipidemia) Code(s): E78.5 - HYPERLIPIDEMIA, UNSPECIFIED Status: Chronic (13) HTN (hypertension) Code(s): I10 - ESSENTIAL (PRIMARY) HYPERTENSION Status: Chronic (14) Physical deconditioning Code(s): R53.81 - OTHER MALAISE Status: Acute (15) Hypothyroid Code(s): E03.9 - HYPOTHYROIDISM, UNSPECIFIED Status: Suspected (16) Elevated INR Code(s): R79.1 - ABNORMAL COAGULATION PROFILE Status: Acute - Plan Plan: 1. Afib w/RVR - currently in NSR. Dig was added yesterday. - Warfarin dc'd by cardiology 2 days ago. INR up to 4.7 today. Continue to monitor - Cards consulted, appreciate recommendations 2. COPD exacerbation - Breathing considerably better today while sleeping. Will continue to give BiPAP as needed. Will monitor for return to functional baseline - O2 demand at baseline - continue duoneb and steroids 3. UTI - Continue abx, today is day 6. Total course should be 1 week. 4. Acute renal failure related to ATN - Cr and GFR are stable today. Urine output was over 100 per hour yesterday - recheck in am 5. Hyperkalemia, resolved 6. Macrocytic anemia - stable, asymptomatic 7. Hypotension, resolved 8. BPH - continue flomax - follow up with urology outpatient for further management 9. Deconditioning - rehab is best option. If patient continues to refuse, will recommend OP PT 10. Metabolic encephalopathy, resolved 11. Hypothyroid - labs c/w central hypothyroid. Would recheck labs and work up further after hospitalization. 12. Super therapeutic INR - Continue to monitor. Warfarin has been dc'd. Dispo:currently stable and appears to have improved today. Likely length of stay >48 hours. Addendum - Attending - Attending Attestation Date/Time: 11/03/18 1744 I personally evaluated the patient and discussed the management with Dr. Vieyra. I agree with the History, Examination, Assessment and Plan documented above with any addition or exceptions noted below. Patient here resolving ARF, UTI, and new onset Afib. He also has severe COPD at baseline and is on home requirement of O2. He is overall doing somewhat better today. Can talk in longer sentences without becoming short of breath. Denies complaints. Renal function overall stable, making adequate urine. He continues to be in and out of RVR, Cardiology on board and is making changes to his AFib regimen. Continue with Schultz cath due to non ambulatory status at this time. Will have PT work with patient as he is declining rehab/SNF placement. He continues to have supratherapeutic INR despite holding coumadin, likely related to his renal function and steroid use. No evidence of bleeding at this time. He is likely a poor anticoagulation candidate due to his age and fall risk, will discuss with family and cardiology. Still anticipate several more days of hospitalization until stable for dispo.
[2018-11-03] MEDS: Budesonide 0.5 MG/2 ML NEB NEB SCH ×2 (07:16→18:13)
[2018-11-03] MEDS: Arformoterol 15 MCG/2 ML NEB NEB SCH ×2 (07:17→18:12)
--- NOTE | 2018-11-03 09:01 | PRG ---
DATE OF SERVICE: 11/03/2018 SUBJECTIVE: He is off the BiPAP today. He actually is very talkative and seems much better than he has been. OBJECTIVE: VITAL SIGNS: Temperature 98.4, pulse 80, blood pressure 153/70, O2 saturation 100%. HEENT: Unremarkable. NECK: No JVD. LUNGS: Coarse breath sounds. CARDIAC: S1, S2. Regular. ABDOMEN: Soft. EXTREMITIES: No edema. LABORATORY DATA: Sodium 142, potassium 4.9, chloride 108, CO2 of 24, BUN 73, creatinine 2.5, glucose 174. INR is 4.7. ASSESSMENT: 1. Acute on chronic respiratory failure. 2. Underlying chronic obstructive pulmonary disease. 3. Atrial fibrillation with rapid ventricular response. 4. Over-anticoagulated. PLAN: 1. Coumadin is being held. 2. Increase physical therapy. Job ID: [id number]
[2018-11-03] MEDS: AMOXicillin 250 MG CAP PO SCH ×3 (10:39→21:16)
[2018-11-03] MEDS: Digoxin 0.125 MG TAB PO SCH (10:40)
[2018-11-03] MEDS: Senokot S 8.6-50 MG TAB PO SCH ×2 (10:40→21:17)
[2018-11-03] MEDS: Aspirin 81 mg Enteric Coated Tablet PO SCH (10:43)
[2018-11-03] MEDS: Loratadine 10 MG TAB PO SCH (10:43)
[2018-11-03] MEDS: Nicotine 14 MG PATCH TD SCH (10:44)
[2018-11-03] MEDS: Folic Acid 1 MG TAB PO SCH (10:44)
[2018-11-03] MEDS: Fluticasone Propionate Nasal Spray 16 gm Bottle NASAL SCH (10:44)
[2018-11-03] MEDS: Tamsulosin HCl 0.4 MG CAP PO SCH (10:45)
[2018-11-03] MEDS: Bacteriostatic Water 30 ML VIAL FS PRN ×2 (12:56→19:31)
--- NOTE | 2018-11-03 16:29 | PRG ---
DATE OF SERVICE: 11/03/2018 SUBJECTIVE: Patient was seen and examined at bedside and overnight events noted. Patient denies any shortness of breath or chest pain or palpitation. No history of nausea or vomiting or diarrhea or fever or chills or cramps. OBJECTIVE: GENERAL: This is a well-built male, in no apparent distress. VITAL SIGNS: Temperature 99.2. HEENT: Atraumatic, normocephalic. Oral mucosa is moist NECK: Supple. CARDIOVASCULAR: S1, S2 heard. Rate and rhythm regular. RESPIRATORY: Clear to auscultation. GASTROINTESTINAL: Abdomen is soft. MUSCULOSKELETAL: No tenderness. No edema. DERMATOLOGIC: No skin rash. NEUROLOGIC: Alert and awake and oriented X3. No focal neurologic deficits. Moving all the extremities. PSYCHIATRIC: Mood and affect normal. LABORATORY DATA: Potassium 4.9, BUN is 73, creatinine is 2.5. ASSESSMENT AND PLAN: 1. Acute kidney injury on chronic kidney disease, stage 4. 2. Anemia. Monitor hemoglobin. 3. Hypertension. 4. Hyperkalemia. 5. Renal function is stable. Avoid nephrotoxins. We will follow. Job ID: [id number]
[2018-11-04] MEDS: methylPREDNISolone Sod Succ 40 MG VIAL IVP SCH ×2 (00:57→06:01)
[2018-11-04 04:55] LABS: Hemoglobin 8.8 g/dL (14.0-18.0); Platelet Count 215 thou/uL (130-400)
[2018-11-04 05:00] LABS: Prothrombin Time 50.5 SEC (12.0-14.7)
[2018-11-04 05:08] LABS: INR-International Normal Ratio 5.6
[2018-11-04] MEDS: Arformoterol 15 MCG/2 ML NEB NEB SCH ×2 (06:35→19:19)
[2018-11-04] MEDS: Budesonide 0.5 MG/2 ML NEB NEB SCH ×2 (06:35→19:18)
--- NOTE | 2018-11-04 06:45 | PDOC.FM ---
- Subjective Subjective: Patient did well over night on BiPAP. He states that he is breathing much better this morning and has no new complaints. No new concerns from nursing. - Objective Vital Signs & Weight: Vital Signs (12 hours) Temp Pulse Resp BP Pulse Ox 11/04/18 06:36 87 11/04/18 06:35 93 L 11/04/18 06:32 89 24 H 93 L 11/04/18 04:00 98 11/04/18 03:52 99.0 F 11/04/18 00:09 87 11/04/18 00:08 70 23 H 100 11/04/18 00:01 98.1 F 11/03/18 21:16 85 133/78 11/03/18 20:00 98 11/03/18 19:25 99.6 F Weight Weight 110.586 kg Most Recent Monitor Data Heart Rate from ECG 89 NIBP 145/64 NIBP BP-Mean 91 Respiration from ECG 18 SpO2 92 I&O: 11/02/18 11/03/18 11/04/18 06:59 06:59 06:59 Intake Total 1616 1040 1080 Output Total 1550 2600 1400 Balance 66 -1560 -320 Result Diagrams: 11/04/18 04:32 11/04/18 08:35 Phys Exam - Physical Examination Constitutional: NAD HEENT: moist MMs Neck: no JVD Mild wheezing throughout, improved exam from yesterday Cardiovascular: RRR, no significant murmur Gastrointestinal: soft, no distention, positive bowel sounds 1+ edema to knee b/l Neurological: non-focal, normal sensation, moves all 4 limbs Psychiatric: normal affect, A&O x 3 Skin: no rash Dx/Plan (1) Atrial fibrillation with RVR Code(s): I48.91 - UNSPECIFIED ATRIAL FIBRILLATION Status: Acute (2) UTI (urinary tract infection) Status: Acute (3) COPD (chronic obstructive pulmonary disease) Status: Chronic Qualifiers: COPD type: COPD with acute exacerbation Qualified Code(s): J44.1 - Chronic obstructive pulmonary disease with (acute) exacerbation (4) Acute renal failure Status: Acute (5) Acute metabolic encephalopathy Code(s): G93.41 - METABOLIC ENCEPHALOPATHY Status: Resolved (6) BPH (benign prostatic hyperplasia) Code(s): N40.0 - BENIGN PROSTATIC HYPERPLASIA WITHOUT LOWER URINRY TRACT SYMP Status: Chronic (7) Hyperkalemia Code(s): E87.5 - HYPERKALEMIA Status: Resolved (8) Hypotension Status: Resolved (9) Macrocytic anemia Code(s): D53.9 - NUTRITIONAL ANEMIA, UNSPECIFIED Status: Chronic (10) Chronic back pain Code(s): M54.9 - DORSALGIA, UNSPECIFIED; G89.29 - OTHER CHRONIC PAIN Status: Chronic (11) GERD (gastroesophageal reflux disease) Code(s): K21.9 - GASTRO-ESOPHAGEAL REFLUX DISEASE WITHOUT ESOPHAGITIS Status: Chronic (12) HLD (hyperlipidemia) Code(s): E78.5 - HYPERLIPIDEMIA, UNSPECIFIED Status: Chronic (13) HTN (hypertension) Code(s): I10 - ESSENTIAL (PRIMARY) HYPERTENSION Status: Chronic (14) Physical deconditioning Code(s): R53.81 - OTHER MALAISE Status: Acute (15) Hypothyroid Code(s): E03.9 - HYPOTHYROIDISM, UNSPECIFIED Status: Suspected (16) Elevated INR Code(s): R79.1 - ABNORMAL COAGULATION PROFILE Status: Acute - Plan Plan: 1. Super therapeutic INR - Continues to worsen. Patient has not had warfarin since 10/31. Likely related to decreased renal fxn - Hb dropped somewhat today which is concerning for possible bleed related to INR. Urine is clear, fobt pending. Will consider starting Vit K if pt is bleeding. He is currently hemodynamically stable - Repeat INR in am 2. Afib w/RVR - currently in NSR. Doing well on dig - Cards consulted, appreciate recommendations 2. COPD exacerbation - Continues to improve, BiPAP seems to have made a considerable difference. Discussed continuing his CPAP at home after dc and following up with PCP for evaluation for possible BiPAP at home. - O2 demand at baseline - continue duoneb and steroids 3. UTI - Continue abx, today is last day of treatment. 4. Acute renal failure related to ATN - Continues to have negative fluid balance and output is greater than 50/hr - labs currently pending, will adjust plan if indicated - Nephro currently following 5. Hyperkalemia, resolved 6. Macrocytic anemia - worsening today, concern for bleeding as above. 7. Hypotension, resolved 8. BPH - continue flomax - follow up with urology outpatient for further management 9. Deconditioning - Home PT, patient refuses inpatient rehab 10. Metabolic encephalopathy, resolved 11. Hypothyroid - labs c/w central hypothyroid. Would recheck labs and work up further after hospitalization. Dispo:currently stable and appears to have improved today. Likely length of stay 1-2 more days Addendum - Attending - Attending Attestation Date/Time: 11/04/18 1038 I personally evaluated the patient and discussed the management with Dr. Vieyra I agree with the History, Examination, Assessment and Plan documented above with any addition or exceptions noted below - Patient sitting up in bed. denies any complaints. States that his breathing is better. Afebrile VSS. A/P: 1) COPD exacerbation - Continue nebs, O2. Transitioning to po steroids as per pulmonary. 2) A-fib- now back in sinus. Continue current meds. Off warfarin due to elevated INR. Continue to hold. Will discuss with patient and family regarding future anticoagulation.
[2018-11-04] MEDS ORDERED: predniSONE 20 MG TAB PO SCH (09:00)
[2018-11-04] MEDS: Nicotine 14 MG PATCH TD SCH (09:12)
[2018-11-04] MEDS: Digoxin 0.125 MG TAB PO SCH (09:12)
[2018-11-04] MEDS: Azithromycin 250 MG TAB PO SCH (09:13)
[2018-11-04] MEDS: Folic Acid 1 MG TAB PO SCH (09:14)
[2018-11-04] MEDS: Tamsulosin HCl 0.4 MG CAP PO SCH (09:14)
[2018-11-04] MEDS: Aspirin 81 mg Enteric Coated Tablet PO SCH (09:14)
[2018-11-04] MEDS: Senokot S 8.6-50 MG TAB PO SCH ×2 (09:14→21:01)
[2018-11-04] MEDS: AMOXicillin 250 MG CAP PO SCH ×3 (09:15→21:01)
[2018-11-04] MEDS: Fluticasone Propionate Nasal Spray 16 gm Bottle NASAL SCH (09:16)
[2018-11-04] MEDS: Loratadine 10 MG TAB PO SCH (09:16)
--- NOTE | 2018-11-04 09:19 | PRG ---
DATE OF SERVICE: 11/04/2018 SUBJECTIVE: The patient is doing better. He is definitely more talkative than he has been. OBJECTIVE: VITAL SIGNS: Temperature 99.0, pulse 87, blood pressure 151/70, O2 saturation 91%. HEENT: Unremarkable. NECK: No JVD. LUNGS: Improved air movement with decreased wheezing. CARDIAC: S1, S2. Regular. ABDOMEN: Soft. EXTREMITIES: No edema. LABORATORY DATA: Hemoglobin 8.8 and platelet count 215. INR 5.6. ASSESSMENT: 1. Chronic obstructive pulmonary disease with exacerbation. 2. Acute on chronic hypoxic and hypercapnic respiratory failure, requiring intermittent BiPAP. 3. Atrial fibrillation. 4. Over-anticoagulated - Coumadin has been held for the last several days. PLAN: 1. I will convert him over to oral steroids. 2. Continue physical therapy. 3. I have asked the patient to have his bring his CPAP or BiPAP machine up to the hospital so that we can see some appropriate settings before discharge. I do not think realistically we could think about discharging him until next week at the earliest. His Coumadin has been held for several days. There is no evidence of bleeding. Job ID: [id number]
[2018-11-04 09:22] LABS: Anion Gap 13 mmol/L (10-20); BUN (Urea Nitrogen) 67 mg/dL (8.4-25.7); Calc. Creatinine Clearance 43 mL/min (70-130); Calcium 8.4 mg/dL (7.8-10.44); Carbon Dioxide 26 mmol/L (23-31); Chloride 106 mmol/L (98-107); Estimated GFR-MDRD 28; Glucose 242 mg/dL (83-110); Potassium 4.5 mmol/L (3.5-5.1); Sodium 140 mmol/L (136-145)
[2018-11-04] MEDS ORDERED: Dextrose 50% Abboject 50 ML SYRINGE SLOW IVP PRN (10:38)
[2018-11-04] MEDS ORDERED: Dextrose 5% in Water 1,000 ML IV PRN (10:38)
[2018-11-04] MEDS ORDERED: HumaLOG 300 UNITS/3 ML VIAL SC PRN (10:40)
[2018-11-04 11:32] LABS: Hemoglobin A1c 5.6 % (4.0-6.0)
[2018-11-04] MEDS: HumaLOG 300 UNITS/3 ML VIAL SC PRN ×2 (12:13→16:38)
[2018-11-04] MEDS: Ondansetron PF 4 MG/2 ML Vial IVP PRN (13:27)
[2018-11-04] MEDS: Lorazepam 2 MG/ML VIAL SLOW IVP PRN ×2 (13:35→21:02)
[2018-11-04] MEDS: Acetaminophen 325 MG TAB PO PRN (13:36)
--- NOTE | 2018-11-04 14:05 | PRG ---
DATE OF SERVICE: 11/04/2018 SUBJECTIVE: This is a 73-year-old gentleman being seen for acute kidney injury. The patient denied any nausea, vomiting, or chest pain. OBJECTIVE: CONSTITUTIONAL: On examination, the patient is awake and alert. VITAL SIGNS: Afebrile, pulse 75, breathing 16, blood pressure 140/73. GENERAL APPEARANCE AND MENTAL STATUS: Fair. HEAD/NECK: Normocephalic. Atraumatic. EYES: EOMI. No deformity. EARS: Clear. No ulcers. NOSE: Intact. No lesions. MOUTH: Clear. No discharge. THROAT: Clear. No exudate. LUNGS: Clear. No crackles. CARDIAC: S1, S2. No rub. ABDOMEN: Benign. Bowel sounds positive. GENITALIA/RECTUM: Schultz absent. BACK/EXTREMITIES: Edema 0+. NEUROLOGICAL: Alert and motor intact. SKIN: LYMPHATICS: LABORATORY DATA: Labs reviewed. ASSESSMENT AND PLAN: 1. Stage 4 chronic kidney disease, stable. 2. Hypertension, stable. 3. Anemia, stable. No indication for dialysis. Can remove dialysis catheter. Job ID: [id number]
--- NOTE | 2018-11-04 14:55 | PRG ---
DATE OF SERVICE: 11/04/2018 Transition of care note Mr. Caldera is a 73-year-old male, who was initially brought to the emergency room by his on recommendation of physical therapist at home when it is noted the patient had not had any urinary output for the previous 2 days. He has a significant history of COPD and was also recently hospitalized after going into acute urinary retention. On admission, the patient was found to be in acute renal failure, hyperkalemic, having a COPD exacerbation, and a UTI. Significant labs at the time of admission include a UA showing 0 to 3 coarse granular casts, 11 to 20 wbc's, small leukocyte esterase, moderate blood. Potassium of 5.3 on admission, creatinine is 7.03, and a GFR of 8. Upon admission, the patient was also fairly hypotensive and it is concerned that the patient is going to need to be started on pressors. The patient received 3.5 L of IV fluids and blood pressure improved significantly. Ultimately, the patient never required blood pressure support. On his second day of admission, the patient was seen by Nephrology, who determined this is likely ATN secondary to prerenal causes of hypovolemia. The patient did not require hemodialysis and his potassium begun to improve on the second day of admission. Specifically, regarding the LENNOX secondary to ATN, the patient was remained on intravenous fluids for 3 to 4 days, and his creatinine improved significantly starting at 7.03 on 10/27 and down to 2.3 by 11/04. He does have significant hyperkalemia up to 5.8; however, this also trended down quickly with resuscitation. GFR at the time of admission was 8, and on 11/04, it was up to 28. For the COPD exacerbation the patient has severe COPD in outpatient setting and is typically on 3 L of oxygen by nasal cannula, and the patient should be on CPAP or BiPAP at home at night, however, is not compliant with the machine. He was started on IV steroids and scheduled DuoNebs. This is improved slowly, at no point did he require additional oxygen than his home oxygen; however, he has significantly increased work of breathing. Beginning on 11/03, the patient finally began to see improvement and this was after compliance with BiPAP at night. On 11/03 and 11/04, there are marked improvements, and in both of these nights, the patient wears BiPAP at night. For the UTI, the cultures grew out both Enterococcus and hemolytic negative Staph, and was treated with amoxicillin for 7-day course. The final day of the course was . It is also significant that the patient was found to be in a new-onset AFib with RVR on the 3rd or 4th day of admission. He was started on diltiazem and converted back into normal sinus rhythm. The patient was moved from IV to p.o. diltiazem and was stable for approximately 1 day. Approximately 2 days after he was found to be in AFib again. The patient was loaded with digoxin. Again, the patient converted back to normal sinus rhythm as of 11/04. The patient has remained in sinus rhythm. When the patient was initially seen by Cardiology on 10/30 for the AFib, the patient was started on 5 mg of warfarin. On 10/30, he received 5 mg of warfarin. On , he received 7.5 mg of warfarin and then subsequently discontinued. Since then, his INR has continued to rise as high as 5.6 on 11/04. However, the patient does not appear to be acutely bleeding at this time. There is a FOBT pending. The plan from this morning is to give vitamin K if it continues to elevate or if there are signs of bleeding. Also, of note, the patient's glucose has certainly continued to rise over the previous 3 to 4 days to as high as 242 on 11/04. This patient does not have a history of hyperglycemia. His A1c is 5.6. It is all likely due to significant amounts of steroids that the patient is getting. He was started on a sliding scale insulin. Job ID: [id number] [facility]
[2018-11-04] MEDS ORDERED: Phytonadione 10 MG/ML AMP PO SCH (18:00)
[2018-11-04 21:05] VITALS: BP 141/71
[2018-11-04 22:37] LABS: Hemoglobin 6.3 g/dL (14.0-18.0)
[2018-11-04 22:45] LABS: Prothrombin Time 59.6 SEC (12.0-14.7)
[2018-11-04 22:48] LABS: INR-International Normal Ratio 6.9
[2018-11-04 23:05] LABS: Troponin I 0.165 ng/mL (< 0.028)
[2018-11-04 23:37] VITALS: TEMP 97.6
--- NOTE | 2018-11-04 23:41 | PDOC.EVN ---
Event Note - Event Note Event Note: Called by nursing for heart rate in the 130s. EKG and troponin ordered. EKG showed a flutter with variable AV block. Hgb 8.8->6.3 on repeat @ 22:20, INR 5.6 ->6.9 (did receive 2.5 mg K+ in between this today). Patient is asymptomatic, on bipap. Sats 88-92%. No hematemasis. FOBT was positive today. Has had one melanotic smear BM. No grossly bloody stool. Spoke with pharmacy. Will transfuse 2 units PRBC, 10mg Vit K and start Protonix drip. Will continue to monitor on telemetry and consider drip for rate control if needed.
[2018-11-04] MEDS ORDERED: Pantoprazole 80 MG in Sodium Chloride 0.9% 100 ML IVP SCH (23:45)
[2018-11-04] MEDS ORDERED: Phytonadione 10 MG in Sodium Chloride 0.9% 50 ML IVPB SCH (23:45)
[2018-11-05] MEDS ORDERED: Lorazepam 2 MG/ML VIAL SLOW IVP SCH (00:45)
--- NOTE | 2018-11-05 01:51 | PDOC.EVN ---
Event Note - Event Note Event Note: Progress Note of Primary cause of : 1. a fib with rvr 2. GI bleed Secondary causes of End stage COPD LENNOX PE: HEENT: pupils fixed and dilated Card: No pulse, no auscultate heart sounds Resp: No spontaneous respirations Neuro: No withdrawal to painful stimuli TOD: 11/05/2018 01:10 The family dose not request an autopsy
--- NOTE | 2018-11-05 02:11 | PDOC.EVN ---
Event Note - Event Note Event Note: Summary Attending: Dr. Toyin Larson Resident: Dr. Winifred Graham, Dr. Carola Manjarrez Admission Date: 10/27/2018 Date of : 11/05/2018 Time of : 01:10 Cause of : 1. Hemodynamic instability 2. Cardiac arrest Secondary Diagnoses 1. COPD 2. atrial fibrillation 3. elevated INR 4. HLD 5. Acute renal failure 6. BPH 7. Tobacco abuse 8. UTI 9. Hypothyroid 10. Deconditioning Hospital Course: 73 year old Male presented for AMS and was admitted for metabolic encephalopathy secondary to acute renal failure. Found to be 2/2 ATN. Throughout the hospital stay, he was treated for a UTI as well as COPD exacerbation. He developed atrial fibrillation with RVR and was started on rate controlling medications per cardiology. Was started on warfarin but then discontinued with supratherapeutic INR. Patient became hemodynamically unstable this evening. November reference event note 11/04. was notified, DNR status confirmed. Patient peacefully.
== END 2018-11-05 02:35 | disposition expired | DRG 871 ==
LOC: ERS 23:38 → CCU 10-27 01:25 → IMCU/EMU 10-28 18:06
PROVIDERS: ADMIT Family Medicine; ATTEND Family Medicine
DX: A41.9 Sepsis, unspecified organism (principal); G93.41 Metabolic encephalopathy; J96.21 Acute and chronic respiratory failure with hypoxia; J96.22 Acute and chronic respiratory failure with hypercapnia; N17.0 Acute kidney failure with tubular necrosis; J44.1 Chronic obstructive pulmonary disease with (acute) exacerbation; N18.4 Chronic kidney disease, stage 4 (severe); N39.0 Urinary tract infection, site not specified; K92.2 Gastrointestinal hemorrhage, unspecified; R65.20 Severe sepsis without septic shock; N40.0 Benign prostatic hyperplasia without lower urinary tract symptoms; F17.210 Nicotine dependence, cigarettes, uncomplicated; E87.5 Hyperkalemia; I12.9 Hypertensive chronic kidney disease with stage 1 through stage 4 chronic kidney disease, or unspecified chronic kidney disease; B95.2 Enterococcus as the cause of diseases classified elsewhere; I48.91 Unspecified atrial fibrillation; G89.29 Other chronic pain; M54.9 Dorsalgia, unspecified; K21.9 Gastro-esophageal reflux disease without esophagitis; I46.9 Cardiac arrest, cause unspecified; F39 Unspecified mood [affective] disorder; D53.9 Nutritional anemia, unspecified; E03.9 Hypothyroidism, unspecified; E78.5 Hyperlipidemia, unspecified; G47.33 Obstructive sleep apnea (adult) (pediatric); F41.9 Anxiety disorder, unspecified; I73.9 Peripheral vascular disease, unspecified; N13.9 Obstructive and reflux uropathy, unspecified; R53.81 Other malaise; R79.1 Abnormal coagulation profile; I44.30 Unspecified atrioventricular block; Z79.51 Long term (current) use of inhaled steroids; Z79.82 Long term (current) use of aspirin; Z79.899 Other long term (current) drug therapy; Z99.81 Dependence on supplemental oxygen; Z86.711 Personal history of pulmonary embolism; Z98.890 Other specified postprocedural states; Z82.49 Family history of ischemic heart disease and other diseases of the circulatory system; Z83.6 Family history of other diseases of the respiratory system; Z91.19 Patient's noncompliance with other medical treatment and regimen
CPT/HCPCS: 36415; 36416; 71045; 74176; 76770; 80048; 80053; 81003; 81015; 82274; 82570; 82607; 82746; 82805; 83036; 83605; 83735; 83935; 84100; 84300; 84436; 84443; 84484; 85014; 85018; 85025; 85049; 85610; 86850; 86900; 86901; 87040; 87077; 87086; 87186; 93005; 93010; 94640; 94660; 96365; 96367; 96375; C9113; J1160; J1644; J1956; J2060; J2405; J2550; J2920; J3430; J3475; J3490; J7050; J7512; J7620; J7626; Q0162